=== PATIENT | female | born 1940 | race African-American/Black ===

== ENCOUNTER → 2016-10-21 | Outpatient (CLI) | payer MEDICARE, BC ==
[2016-07-16 10:52] VITALS: BP 134/68
[~2016-10-21] MED LIST: AMLO5TAB2 PO; ATOR20TA58 PO; HYDR-971 PO; HYDR25TA9 PO; LEVO100T PO; LEVO112T4 PO; METO50TA10 PO; METO50TA2 PO; PANT20TA2 PO; VALA500T5 PO
--- NOTE | 2016-10-21 16:41 | RAD ---
APPROVED REPORT Patient Location : OUT-PATIENT Indications Dill scale images of the bilateral great saphenous veins and lesser saphenous veins does not reveal a ny obvious evidence of thrombus. Spectral waveforms reveal normal flow patterns with no evidence of s ignificant reflux. The bilateral lesser saphenous veins do not show any evidence of reflux. The right great saphenous vein measures approximately 6.9 mm with a reflux time of 0.5 seconds. The left great saphenous vein measures 5.7 mm with a reflux time of 0.3 seconds. Critical Notification Critical Value: No <Conclusion> No evidence of reflux in the bilateral lesser and greater saphenous veins.
== END | disposition home or self-care (01) ==
LOC: US 09:46
PROVIDERS: ATTEND Internal Medicine Cardiovascular Disease
DX: K21.9 Gastro-esophageal reflux disease without esophagitis (principal); M79.89 Other specified soft tissue disorders
CPT/HCPCS: 93970

== ENCOUNTER → 2017-03-20 | Outpatient (CLI) | payer MEDICARE, BC ==
[2016-07-16 10:52] VITALS: BP 134/68
[~2017-03-20] MED LIST changes: -METO50TA10 PO; +METO50TA29 PO; -PANT20TA2 PO; +PANT20TA58 PO
--- NOTE | 2017-03-20 10:24 | RAD ---
EXAM: Chest 2 views. HISTORY: Chest pain, chills. COMPARISON: 07/14/2016. FINDINGS: Frontal and lateral views of the chest are obtained. Bilaterally opacities in the left base most likely indicate atelectasis. The hemidiaphragms are mildly flattened. There are atherosclerotic calcifications of the aorta. There is no pneumothorax or pleural effusion. The heart is not enlarged. Changes of thyroidectomy are suspected. IMPRESSION: 1. Correlate for chronic obstructive pulmonary disease. Left basilar atelectasis versus minimal infiltrate.
== END | disposition home or self-care (01) ==
LOC: DXRAD 10:00
PROVIDERS: ATTEND Family Medicine
DX: J98.6 Disorders of diaphragm (principal); I70.0 Atherosclerosis of aorta; R07.89 Other chest pain; R68.83 Chills (without fever)
CPT/HCPCS: 71020

== ENCOUNTER 2017-03-29 11:30 | Emergency (ER) | payer MEDICARE, BC ==
[~2017-03-29] VITALS: Ht 167.6 cm; Wt 72.1 kg
[2017-03-29 11:40] VITALS: BP 179/96
--- NOTE | 2017-03-29 12:17 | PHYS DOC ---
General Chief Complaint: COUGH Stated Complaint: COUGH Time Seen by MD: 11:37 Source: patient Exam Limitations: no limitations Problems: History of Present Illness Initial Comments Patient is a 76-year-old female who comes to the ED complaining of cough and right ear fullness. Patient states that she's had a dry cough with clear nasal discharge and watery eyes for the past few days. Today she's had right ear fullness with muffled hearing no actual pain. No fever or chills or difficulty breathing no headache nausea or vomiting. Patient has history of seasonal allergies and is a former smoker denies asthma history. No chest pain or dyspnea on exertion, further questioning reveals the patient sleeps primarily on the right side of her head. Timing/Duration: changing over time, other Severity: mild Modifying Factors: improves with other Associated Symptoms: cough, other Allergies: Coded Allergies: MARIANA Inhibitors (Verified Allergy, Intermediate, 07/15/16) Penicillins (Verified Allergy, Intermediate, 07/15/16) lansoprazole (Verified Allergy, Intermediate, 07/15/16) moxifloxacin (Verified Allergy, Intermediate, 07/15/16) ceftriaxone (Verified Adverse Reaction, Intermediate, 02/24/16) Past Medical History Medical History: other (GERD, hypertension) Surgical History: appendectomy (thyroidectomy) Social History Smoker: quit greater than 1 year Alcohol: none Drugs: none Review of Systems Constitutional: denies chills, denies diaphoresis, denies fever, denies malaise EENTM: see HPI Respiratory: see HPI, denies shortness of breath Cardiovascular: denies chest pain, denies palpitations, denies syncope Gastrointestinal: denies abdominal pain, denies nausea, denies vomiting Musculoskeletal: denies back pain, denies joint swelling, denies neck pain Psychiatric/Neurological: denies headache, denies numbness, denies paresthesia Physical Exam General Appearance: WD/WN, no apparent distress Eyes: bilateral eye PERRL, bilateral eye EOMI, bilateral eye other ( conjunctivae injected with clear tearing bilaterally) Ear, Nose, Throat: other (serous fluid right TM, turbinates inflamed with clear nasal discharge and postnasal drip) Neck: non-tender, supple Respiratory: chest non-tender, no respiratory distress, other (mildly decreased breath sounds bilaterally with faint wheeze) Cardiovascular: normal peripheral pulses, regular rate, rhythm Back: no CVA tenderness, no vertebral tenderness Extremities: non-tender, normal inspection 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 PHYSICIAN: ULI KENNEDY DO REASON: cough PROCEDURE: PORTABLE CHEST 1V Portable chest, 03/29/2017: History: Cough Comparison is made to a study from 03/20/2017. The heart is at the upper limits of normal in size. There is calcific plaquing of the aorta. The pulmonary vascularity is normal. No pulmonary infiltrate is seen. No definite pleural fluid is seen. IMPRESSION: No acute cardiopulmonary abnormality is detected. DICTATED AND SIGNED BY: BAHMAN LANGFORD MD DATE: 03/29/17 1212 CC: SANDEE CHAVEZ MD; ULI KENNEDY DO ~ Recheck after DuoNeb patient's lungs are clearer with better air movement still with faint wheeze bilaterally. Departure Time of Disposition: 13:25 Disposition: 01 HOME, SELF-CARE Diagnosis: bronchitis, R serous OM, allergic rhinitis Condition: GOOD Patient Instructions: Allergic Rhinitis, Serous Otitis Media Additional Instructions: Continue current medications. Avoid smoke and environmental allergens as you were able. Iwav-[id number] Zyrtec or warning symptoms, Benadryl for nighttime symptoms. Prescriptions: Prednisone, Zithromax, albuterol Follow-up with your doctor in 5-7 days for recheck. Return to the ED with new or changing symptoms. ULI KENNEDY DO Mar 29, 2017 12:17
[2017-03-29] MEDS ORDERED: IPRATRPIUM/ALBUTEROL 0.5/2.5MG 3 ML NEBU. NEB ONE (13:00)
[2017-03-29] MEDS ORDERED: ALBU8.5H8 INH (13:25)
[2017-03-29] MEDS ORDERED: PRED20TA PO (13:25)
[2017-03-29] MEDS ORDERED: AZIT250T PO (13:25)
== END 2017-03-29 13:48 | disposition home or self-care (01) ==
LOC: ER 11:30
DX: J40 Bronchitis, not specified as acute or chronic (principal); H65.91 Unspecified nonsuppurative otitis media, right ear; J30.9 Allergic rhinitis, unspecified; I10 Essential (primary) hypertension; K21.9 Gastro-esophageal reflux disease without esophagitis; Z87.891 Personal history of nicotine dependence; Z88.8 Allergy status to other drugs, medicaments and biological substances; Z88.1 Allergy status to other antibiotic agents; Z88.0 Allergy status to penicillin
CPT/HCPCS: 71010; 94640; 99284; J7620

== ENCOUNTER → 2017-04-16 | Outpatient (CLI) | payer MEDICARE, BC ==
[2017-03-29 11:40] VITALS: BP 179/96
[~2017-04-16] MED LIST changes: +ALBU8.5H8 INH; +AZIT250T PO; +IV RINGERS SOLUTION,LACTATED 1,000 ML IV ONE; +LIDOCAINE 2% PF Vial for OR 5 ML VIAL. ONE; +PRED20TA PO; +PROPOFOL 20 ML IV ONE
== END | disposition home or self-care (01) ==
LOC: SURG 11:54
PROVIDERS: ATTEND Internal Medicine Gastroenterology
DX: K29.70 Gastritis, unspecified, without bleeding (principal); K44.9 Diaphragmatic hernia without obstruction or gangrene; I10 Essential (primary) hypertension; E03.9 Hypothyroidism, unspecified; E11.9 Type 2 diabetes mellitus without complications
CPT/HCPCS: 43239; J2704; J7120; J2001

== ENCOUNTER → 2017-04-28 | Outpatient (CLI) | payer MEDICARE, BC ==
[2017-03-29 11:40] VITALS: BP 179/96
[~2017-04-28] MED LIST changes: +IOHEXOL 240 MG/ML 50ML VIAL. ONE; +IOHEXOL 300 MG/ML 75 ML VIAL. IV ONE; -IV RINGERS SOLUTION,LACTATED 1,000 ML IV ONE; -LIDOCAINE 2% PF Vial for OR 5 ML VIAL. ONE; -PROPOFOL 20 ML IV ONE
[2017-04-28 08:27] LABS: CREATININE 0.8 mg/dL (0.6-1.0); GFR 84.6
--- NOTE | 2017-04-28 10:48 | RAD ---
EXAM: CT abdomen/pelvis with contrast. HISTORY: Weight loss. TECHNIQUE: Computed tomography of the abdomen and pelvis was performed after the intravenous administration of 75 mL Omnipaque 300. COMPARISON: 07/14/2016. FINDINGS: Lung windows through the visualized portions of the bases reveal mild atelectasis. There is a small to moderate hiatal hernia. Bone windows reveal no suspicious lesions. A bone island in the left iliac wing is likely benign. Multiple fluid density lesions scattered throughout the liver most likely represent cysts. The largest in the right lobe measures 4.3 x 3.2 cm. There are no suspicious hepatic lesions. The distal pancreatic duct is at the upper limits of normal caliber. No pancreatic parenchymal lesion is seen. There is a cortical scar posteriorly along the right renal interpolar region. Small renal cysts measure up to 1 cm on the left. The gallbladder, adrenal glands and spleen are unremarkable. There are no pathologically enlarged lymph nodes. The uterus is surgically absent. Sigmoid diverticulosis is mild. There is no obstruction. IMPRESSION: 1. No cause for weight loss is identified. 2. Mfacr-rh-xawzpffy hiatal hernia. *One or more of the following individualized dose reduction techniques were utilized for this examination: 1. Automated exposure control. 2. Adjustment of the mA and/or kV according to patient size. 3. Use of iterative reconstruction technique.
== END | disposition home or self-care (01) ==
LOC: CT 07:46
PROVIDERS: ATTEND Internal Medicine Gastroenterology
DX: K57.30 Diverticulosis of large intestine without perforation or abscess without bleeding (principal); K44.9 Diaphragmatic hernia without obstruction or gangrene; N28.1 Cyst of kidney, acquired; J98.11 Atelectasis; R63.4 Abnormal weight loss; I10 Essential (primary) hypertension; E78.00 Pure hypercholesterolemia, unspecified; F17.200 Nicotine dependence, unspecified, uncomplicated; Z90.710 Acquired absence of both cervix and uterus
CPT/HCPCS: 36415; 74177; 82565; 84520; Q9966; Q9967

== ENCOUNTER 2017-06-19 11:27 | Inpatient (IN) | payer MEDICARE, BC ==
[~2017-06-19] VITALS: Ht 167.6 cm; Wt 74.4 kg
[~2017-06-19 11:27] MED LIST changes: -IOHEXOL 240 MG/ML 50ML VIAL. ONE; -IOHEXOL 300 MG/ML 75 ML VIAL. IV ONE; -METO50TA2 PO; +METO50TA6 PO
[2017-06-19] MEDS ORDERED: ACETAMINOPHEN 325 MG TABLET PO PRN (13:00)
[2017-06-19 13:13] VITALS: BP 185/104
[2017-06-19 14:01] LABS: BASO % 1 % (0-3); EOS # 0.1 x10^3/uL (0.0-0.7); EOS % 1 % (0-3); HEMATOCRIT 39.7 % (36.0-47.0); HEMOGLOBIN 13.6 g/dL (12.0-15.5); LYMPH % 13 % (24-48); MEAN CORPUSCULAR HEMOGLOBIN 32 pg (25-35); MEAN CORPUSCULAR HGB CONC 34 g/dL (31-37); MEAN CORPUSCULAR VOLUME 94 fL (79-100); MONO # 0.3 x10^3/uL (0.0-1.1); MONO % 4 % (0-9); NEUT # 6.4 x10^3uL (1.8-7.7); NEUT % 81 % (31-73); PLATELET COUNT 313 x10^3/uL (140-400); RED BLOOD COUNT 4.22 x10^6/uL (3.50-5.40); RED CELL DISTRIBUTION WIDTH 14.2 % (11.5-14.5); WHITE BLOOD COUNT 7.8 x10^3/uL (4.0-11.0)
[2017-06-19] MEDS ORDERED: PANT40TA5 PO (14:16)
[2017-06-19 14:21] LABS: ALBUMIN 3.8 g/dL (3.4-5.0); ALBUMIN/GLOBULIN RATIO 0.8 (1.0-1.7); CALCIUM 8.9 mg/dL (8.5-10.1); CREATININE 0.8 mg/dL (0.6-1.0); GFR 84.6; POTASSIUM 3.5 mmol/L (3.5-5.1); TOTAL BILIRUBIN 0.3 mg/dL (0.2-1.0); TOTAL PROTEIN 8.5 g/dL (6.4-8.2)
[2017-06-19 15:04] LABS: SEDIMENTATION RATE 65 (0-25)
--- NOTE | 2017-06-19 15:36 | RAD ---
Chest, 2 views, 06/19/2017: History: Pneumonia Comparison is made to a study from 03/29/2017. The heart size and pulmonary vascularity are normal. There is calcific plaquing and tortuosity of the thoracic aorta. There is mild left basilar linear scarring or atelectasis. No pulmonary consolidation is evident. There is no evidence of pleural fluid. IMPRESSION: Mild left basilar linear atelectasis or scarring.
[2017-06-19] MEDS: IV NORMAL SALINE 1,000ML 1,000 ML IV SCH (15:38)
[2017-06-19] MEDS: ENOXAPARIN 40 MG/0.4 ML DISP.SYRIN. SQ SCH (15:39)
[2017-06-19] MEDS: PROMETH/CODEINE 6.25/10MG 5 ML SYRUP. PO PRN (15:44)
[2017-06-19] MEDS: cloNIDine HCL 0.1 MG TABLET PO PRN (16:17)
[2017-06-19] MEDS: IPRATRPIUM/ALBUTEROL 0.5/2.5MG 3 ML NEBU. NEB SCH ×3 (16:55→21:00)
[2017-06-19 17:01] VITALS: BP 175/77
[2017-06-19] MEDS ORDERED: valACYclovir 500 MG TABLET. PO PRN (18:15)
[2017-06-19] MEDS ORDERED: PROMETH/CODEINE 6.25/10MG 5 ML SYRUP. PO PRN (18:15)
[2017-06-19] MEDS ORDERED: ZOLPIDEM 5 MG TABLET. PO PRN (18:15)
[2017-06-19] MEDS ORDERED: VANCOMYCIN 1.75 GM in IV NORMAL SALINE 500ML 500 ML IV ONE (18:30)
[2017-06-19] MEDS ORDERED: IOHEXOL 300 MG/ML 75 ML VIAL. IV ONE ×2 (18:30→19:45)
[2017-06-19] MEDS ORDERED: ALBUTEROL SULFATE 2.5 MG/3 ML NEBU. NEB PRN (18:45)
[2017-06-19] MEDS: methylPREDNISolone SOD SUCC PF 40 MG/ML VIAL. IV SCH (19:19)
[2017-06-19] MEDS: amLODIPine BESYLATE 5 MG TABLET PO SCH (19:20)
[2017-06-19 19:38] VITALS: BP 118/65
[2017-06-19] MEDS ORDERED: ALBUTEROL SULFATE 8GM INHALER. INH SCH (20:00)
[2017-06-19 20:02] VITALS: BP 163/106
[2017-06-19] MEDS: VANCOMYCIN PER PHARMACY MC PRN (20:35)
[2017-06-19] MEDS: LACTOBACILLUS RHAMNOSUS GG 1 CAPSULE. PO SCH (21:10)
[2017-06-19] MEDS: DOXYCYCLINE HYCLATE 100 MG TABLET PO SCH (21:10)
[2017-06-19] MEDS: METOPROLOL SUCC 24HR ER 25 MG TAB.ER.24H. PO SCH (21:11)
[2017-06-19] MEDS ORDERED: cloNIDine HCL 0.1 MG TABLET PO SCH (22:00)
--- NOTE | 2017-06-19 23:09 | RAD ---
CT angiography chest with contrast TECHNIQUE: Helical CT imaging of the chest with multiplanar 3-D MIP reconstructions of the pulmonary arteries to assess for emboli with 65 mL Omnipaque 300 intravenous contrast. HISTORY: Elevated d-dimer. FINDINGS: The pulmonary arteries are markedly under opacified with contrast limiting the ability to detect pulmonary emboli peripheral of the brenda, there is no large central pulmonary artery embolus of the main, right or left pulmonary artery centrally the brenda evident. Heart size normal. Thoracic aorta unremarkable. Small sliding hiatal hernia gastroesophageal junction. No mediastinal or hilar adenopathy within the chest. Left renal parapelvic 2 cm cyst and upper pole 1 cm nonspecific hypodense lesion. Numerous fluid density liver cysts with densities measuring less than 10 units some of the cysts have irregular margins however no enhancing components or internal septations are evident. Mild basilar lower lobe discoid atelectasis. No pneumothorax or pleural effusions. Bones unremarkable. IMPRESSION: 1. Limited contrast density within the pulmonary arteries decreases sensitivity to detect pulmonary emboli as described above. No large central pulmonary artery embolus is evident as described above. 2. Mild basilar lower lobe atelectasis. 3. Numerous fluid density liver cystic lesions. This may be further characterized by abdominal sonography. Exposure: One or more of the following individualized dose reduction techniques were utilized for this examination: 1. Automated exposure control 2. Adjustment of the mA and/or kV according to patient size 3. Use of iterative reconstruction technique Electronically signed by: Ravinder Hsu MD (06/19/2017 11:06 PM) [facility]
[2017-06-19] MEDS: ACETAMINOPHEN 500 MG TABLET PO PRN (23:23)
[2017-06-19 23:41] VITALS: BP 157/79
[2017-06-19 23:45] LABS: BILIRUBIN,URINE NEG (NEG); CLARITY,URINE CLEAR; COLOR,URINE STRAW; GLUCOSE,URINE NEG (NEG); NITRITE,URINE NEG (NEG); UROBILINOGEN,URINE 0.2 mg/dL (0.2 mg/dL); WBC,URINE 0 /HPF (0-4)
[2017-06-19 23:46] LABS: BACTERIA,URINE FEW /HPF (0-FEW); SQUAMOUS EPITHELIAL CELL,UR FEW /LPF
[2017-06-20] MEDS: PROMETH/CODEINE 6.25/10MG 5 ML SYRUP. PO PRN (04:50)
[2017-06-20] MEDS: IV NORMAL SALINE 1,000ML 1,000 ML IV SCH ×2 (05:10→09:00)
[2017-06-20] MEDS: LEVOTHYROXINE 112 MCG TABLET PO SCH (05:13)
[2017-06-20 05:48] LABS: BASO % 0 % (0-3); EOS % 0 % (0-3); HEMATOCRIT 34.6 % (36.0-47.0); LYMPH # 0.7 x10^3/uL (1.0-4.8); LYMPH % 10 % (24-48); MEAN CORPUSCULAR HEMOGLOBIN 32 pg (25-35); MEAN CORPUSCULAR HGB CONC 35 g/dL (31-37); MEAN CORPUSCULAR VOLUME 92 fL (79-100); MONO # 0.5 x10^3/uL (0.0-1.1); MONO % 6 % (0-9); NEUT # 6.5 x10^3uL (1.8-7.7); NEUT % 84 % (31-73); PLATELET COUNT 256 x10^3/uL (140-400); RED BLOOD COUNT 3.74 x10^6/uL (3.50-5.40); RED CELL DISTRIBUTION WIDTH 14.4 % (11.5-14.5); WHITE BLOOD COUNT 7.7 x10^3/uL (4.0-11.0)
[2017-06-20 05:51] VITALS: BP 141/84
[2017-06-20 05:53] LABS: CALCIUM 7.4 mg/dL (8.5-10.1); CREATININE 0.9 mg/dL (0.6-1.0); GFR 73.9; POTASSIUM 3.4 mmol/L (3.5-5.1)
[2017-06-20] MEDS: IPRATRPIUM/ALBUTEROL 0.5/2.5MG 3 ML NEBU. NEB SCH ×5 (06:04→20:50)
[2017-06-20] MEDS: methylPREDNISolone SOD SUCC PF 40 MG/ML VIAL. IV SCH (08:56)
[2017-06-20] MEDS: amLODIPine BESYLATE 5 MG TABLET PO SCH (08:56)
[2017-06-20] MEDS: DOXYCYCLINE HYCLATE 100 MG TABLET PO SCH ×2 (08:57→21:03)
[2017-06-20] MEDS: LACTOBACILLUS RHAMNOSUS GG 1 CAPSULE. PO SCH ×2 (08:57→21:03)
[2017-06-20] MEDS: METOPROLOL SUCC 24HR ER 25 MG TAB.ER.24H. PO SCH ×2 (08:57→21:04)
[2017-06-20] MEDS ORDERED: PNEUMOC CONJ VACC 23-VALENT 0.5 ML VIAL. VAX IM ONE (09:00)
[2017-06-20] MEDS: ACETAMINOPHEN 500 MG TABLET PO PRN ×2 (10:39→18:24)
[2017-06-20 11:19] VITALS: BP 155/81
--- NOTE | 2017-06-20 13:20 | RAD ---
Ultrasound abdomen 06/20/2017 Indication: Cystic liver lesions. Comparison: CT chest 06/19/2017. Technique: Multiple sonographic images of the abdomen were obtained utilizing grayscale and color Doppler. Findings: Visualized portions of pancreas appear normal. Abdominal aorta measures 1.2 cm the mid aorta and is otherwise obscured. IVC is patent. Gallbladder is normal in appearance without evidence for gallstones, gallbladder wall thickening or pericholecystic fluid. Common bile duct measures 5 mm, within normal limits. Multiple anechoic circumscribed lesions with through transmission are identified within the liver measuring 14 x 10 x 12 mm in the left hepatic lobe, 10 x 9 x 12 mm in the anterior liver, and 40 x 25 x 28 mm in the right hepatic dome. Additionally, there is a 29 x 22 x 31 mm cyst with a thin septation in the right hepatic dome. There is an adjacent 13 mm cyst. Along the border of the right kidney, there is a 6 mm cyst. No suspicious hepatic masses are identified. All of the hypodense lesions identified on the CT may not be completely characterized on this examination. The right kidney measures 9.7 x 4.7 x 4.4 cm. The left kidney measures 10.9 x 5.6 x 6.0 cm. There is a 11 x 12 x 14 mm simple cyst in the midpole the left kidney. Otherwise, kidneys are normal in appearance without evidence for hydronephrosis or suspicious renal mass. No renal calculi are identified. There is no free fluid in the abdomen. Spleen is normal in size measuring up to 8.0 cm. Impression: Previously seen hypodense lesions on CT within the hepatic parenchyma are felt to represent benign etiology such as simple cysts. Not all the hypodense lesions may be characterize on this examination. If there is any history of underlying malignancy or elevated liver enzymes, further evaluation with abdominal MRI may be of benefit. Otherwise, findings are most favored to be benign.
[2017-06-20] MEDS: ENOXAPARIN 40 MG/0.4 ML DISP.SYRIN. SQ SCH (13:30)
[2017-06-20] MEDS: POTASSIUM CHLORIDE 30 MEQ in IV 1/2 NORMAL SALINE 1,000 ML IV SCH (13:31)
[2017-06-20 15:24] VITALS: BP 154/79
[2017-06-20 20:13] VITALS: BP 171/89
[2017-06-20] MEDS: VANCOMYCIN 1 GM in IV NORMAL SALINE 250ML 250 ML IV SCH (21:03)
[2017-06-20 23:23] VITALS: BP 151/80
[2017-06-21] MEDS: POTASSIUM CHLORIDE 30 MEQ in IV 1/2 NORMAL SALINE 1,000 ML IV SCH ×2 (02:53→20:31)
[2017-06-21] MEDS: PROMETH/CODEINE 6.25/10MG 5 ML SYRUP. PO PRN ×2 (03:25→20:21)
[2017-06-21] MEDS: LEVOTHYROXINE 112 MCG TABLET PO SCH (05:27)
[2017-06-21] MEDS: IPRATRPIUM/ALBUTEROL 0.5/2.5MG 3 ML NEBU. NEB SCH ×4 (05:29→20:10)
[2017-06-21 05:33] VITALS: BP 165/75
[2017-06-21] MEDS: LACTOBACILLUS RHAMNOSUS GG 1 CAPSULE. PO SCH ×2 (08:15→20:22)
[2017-06-21] MEDS: METOPROLOL SUCC 24HR ER 25 MG TAB.ER.24H. PO SCH ×2 (08:16→20:22)
[2017-06-21] MEDS: amLODIPine BESYLATE 5 MG TABLET PO SCH (08:16)
[2017-06-21] MEDS: methylPREDNISolone SOD SUCC PF 40 MG/ML VIAL. IV SCH (08:16)
[2017-06-21] MEDS: DOXYCYCLINE HYCLATE 100 MG TABLET PO SCH ×2 (10:21→20:22)
[2017-06-21 11:09] VITALS: BP 153/99
[2017-06-21] MEDS: ENOXAPARIN 40 MG/0.4 ML DISP.SYRIN. SQ SCH (12:55)
[2017-06-21] MEDS: ACETAMINOPHEN 500 MG TABLET PO PRN ×2 (12:55→20:22)
[2017-06-21] MEDS: cloNIDine HCL 0.1 MG TABLET PO PRN (12:55)
[2017-06-21 15:03] VITALS: BP 149/79
--- NOTE | 2017-06-21 15:06 | PN ---
DATE: SUBJECTIVE: A 76-year-old female in with pneumonia and exacerbation of COPD. OBJECTIVE: VITAL SIGNS: The patient has been running temperatures upwards of 101.7 with a pulse over 100. Technically septic. Blood pressure 155/80, respiratory 20. GENERAL: Feels better, but still very ill: The patient's white count was basically unremarkable. LUNGS: Show expiratory wheezes. CARDIOVASCULAR: Regular sinus rhythm. NEURO: She is tight and ill-appearing. PLAN: We will continue to monitor the patient accordingly to make further evaluation. IMPRESSION: Pneumonia of unspecified etiology, acute exacerbation of chronic obstructive pulmonary disease. SANDEE CHAVEZ MD DR: MANASA/alexa JOB#: [id number] / [id number]
[2017-06-21] MEDS: DICLOFENAC SODIUM 1% TOPICAL GEL 100GM TUBE. TP SCH ×2 (17:30→20:32)
[2017-06-21 19:29] LABS: VANC TR 4.4 mcg/mL (10.0-20.0)
[2017-06-21 19:37] VITALS: BP 152/85
[2017-06-21] MEDS: VANCOMYCIN 1 GM in IV NORMAL SALINE 250ML 250 ML IV SCH (20:21)
[2017-06-21 23:52] VITALS: BP 167/84
[2017-06-22] MEDS: LEVOTHYROXINE 112 MCG TABLET PO SCH (05:27)
[2017-06-22] MEDS: IPRATRPIUM/ALBUTEROL 0.5/2.5MG 3 ML NEBU. NEB SCH ×4 (05:36→20:05)
[2017-06-22 06:17] LABS: BASO % 0 % (0-3); EOS % 0 % (0-3); HEMATOCRIT 35.3 % (36.0-47.0); HEMOGLOBIN 11.9 g/dL (12.0-15.5); LYMPH # 1.8 x10^3/uL (1.0-4.8); LYMPH % 26 % (24-48); MEAN CORPUSCULAR HEMOGLOBIN 32 pg (25-35); MEAN CORPUSCULAR HGB CONC 34 g/dL (31-37); MEAN CORPUSCULAR VOLUME 94 fL (79-100); MONO # 0.5 x10^3/uL (0.0-1.1); MONO % 8 % (0-9); NEUT # 4.5 x10^3uL (1.8-7.7); NEUT % 66 % (31-73); PLATELET COUNT 287 x10^3/uL (140-400); RED BLOOD COUNT 3.75 x10^6/uL (3.50-5.40); WHITE BLOOD COUNT 6.8 x10^3/uL (4.0-11.0)
[2017-06-22 06:19] LABS: CALCIUM 7.3 mg/dL (8.5-10.1); CREATININE 0.8 mg/dL (0.6-1.0); GFR 84.6; POTASSIUM 4.3 mmol/L (3.5-5.1)
[2017-06-22 06:24] VITALS: BP 138/71
[2017-06-22 06:30] VITALS: BP 161/82
[2017-06-22] MEDS: VANCOMYCIN 1 GM in IV NORMAL SALINE 250ML 250 ML IV SCH ×2 (07:40→19:19)
[2017-06-22] MEDS: VANCOMYCIN PER PHARMACY MC PRN (08:59)
[2017-06-22] MEDS: methylPREDNISolone SOD SUCC PF 40 MG/ML VIAL. IV SCH (09:23)
[2017-06-22] MEDS: LACTOBACILLUS RHAMNOSUS GG 1 CAPSULE. PO SCH ×2 (09:23→20:15)
[2017-06-22] MEDS: amLODIPine BESYLATE 5 MG TABLET PO SCH (09:24)
[2017-06-22] MEDS: METOPROLOL SUCC 24HR ER 25 MG TAB.ER.24H. PO SCH ×2 (09:24→20:15)
[2017-06-22] MEDS: DOXYCYCLINE HYCLATE 100 MG TABLET PO SCH ×2 (09:24→20:15)
[2017-06-22] MEDS: DICLOFENAC SODIUM 1% TOPICAL GEL 100GM TUBE. TP SCH ×3 (10:02→20:15)
[2017-06-22 10:49] VITALS: BP 151/82
[2017-06-22] MEDS: POTASSIUM CHLORIDE 30 MEQ in IV 1/2 NORMAL SALINE 1,000 ML IV SCH (11:33)
[2017-06-22] MEDS: ENOXAPARIN 40 MG/0.4 ML DISP.SYRIN. SQ SCH (13:17)
[2017-06-22] MEDS: PROMETH/CODEINE 6.25/10MG 5 ML SYRUP. PO PRN (14:36)
[2017-06-22 16:14] VITALS: BP 171/92
[2017-06-22 19:54] VITALS: BP 163/88
[2017-06-22 22:31] VITALS: BP 173/88
--- NOTE | 2017-06-23 01:51 | PN ---
DATE: SUBJECTIVE: A 76-year-old female in with acute exacerbation of COPD as well as pneumonia of unspecified etiology. She says she is feeling a little bit better and looks a little bit better. OBJECTIVE: VITAL SIGNS: Blood pressure 150/80, respiratory rate 20, pulse 75 and afebrile. LUNGS: Diminished throughout, poor movement of air. CARDIOVASCULAR: Regular sinus rhythm. ABDOMEN: Soft and nontender. IMPRESSION: Acute exacerbation of chronic obstructive pulmonary disease and pneumonia of unspecified etiology. PLAN: Continue with present drug regimen. SANDEE CHAVEZ MD DR: MANASA/alexa JOB#: [id number] / [id number]
[2017-06-23] MEDS: POTASSIUM CHLORIDE 30 MEQ in IV 1/2 NORMAL SALINE 1,000 ML IV SCH (03:50)
[2017-06-23 05:09] VITALS: BP 152/98
[2017-06-23] MEDS: IPRATRPIUM/ALBUTEROL 0.5/2.5MG 3 ML NEBU. NEB SCH (05:30)
[2017-06-23] MEDS: LEVOTHYROXINE 112 MCG TABLET PO SCH (06:11)
[2017-06-23 07:13] LABS: CALCIUM 7.9 mg/dL (8.5-10.1); CREATININE 0.7 mg/dL (0.6-1.0); GFR 98.7; POTASSIUM 4.2 mmol/L (3.5-5.1)
[2017-06-23 07:18] LABS: VANC TR 13.9 mcg/mL (10.0-20.0)
[2017-06-23 07:30] LABS: BASO % 1 % (0-3); EOS % 0 % (0-3); HEMOGLOBIN 12.6 g/dL (12.0-15.5); LYMPH # 1.6 x10^3/uL (1.0-4.8); LYMPH % 31 % (24-48); MEAN CORPUSCULAR HEMOGLOBIN 32 pg (25-35); MEAN CORPUSCULAR HGB CONC 34 g/dL (31-37); MEAN CORPUSCULAR VOLUME 95 fL (79-100); MONO # 0.5 x10^3/uL (0.0-1.1); MONO % 11 % (0-9); NEUT # 2.9 x10^3uL (1.8-7.7); NEUT % 58 % (31-73); PLATELET COUNT 291 x10^3/uL (140-400); RED BLOOD COUNT 3.92 x10^6/uL (3.50-5.40); RED CELL DISTRIBUTION WIDTH 14.5 % (11.5-14.5)
[2017-06-23] MEDS ORDERED: LEVO500T59 PO (10:03)
[2017-06-23] MEDS ORDERED: LACT1CAP19 PO (10:03)
[2017-06-23] MEDS ORDERED: PROM118S2 PO (10:03)
[2017-06-23] MEDS ORDERED: PRED5TAB PO (10:03)
[2017-06-23] MEDS ORDERED: IPRA3AMP NEB (10:03)
[2017-06-23] MEDS ORDERED: AMLO5TAB2 PO (10:03)
[2017-06-23] MEDS: LACTOBACILLUS RHAMNOSUS GG 1 CAPSULE. PO SCH (10:09)
[2017-06-23] MEDS: amLODIPine BESYLATE 5 MG TABLET PO SCH (10:10)
[2017-06-23 10:11] VITALS: BP 152/98
[2017-06-23] MEDS: DOXYCYCLINE HYCLATE 100 MG TABLET PO SCH (10:11)
[2017-06-23] MEDS: METOPROLOL SUCC 24HR ER 25 MG TAB.ER.24H. PO SCH (10:11)
[2017-06-23] MEDS: DICLOFENAC SODIUM 1% TOPICAL GEL 100GM TUBE. TP SCH (10:14)
[2017-06-23] MEDS: methylPREDNISolone SOD SUCC PF 40 MG/ML VIAL. IV SCH (10:14)
[2017-06-23] MEDS ORDERED: VANCOMYCIN 1.25 GM in IV NORMAL SALINE 250ML 250 ML IV SCH (19:30)
[2017-06-23] MEDS ORDERED: VANCOMYCIN 1.5 GM in IV NORMAL SALINE 500ML 500 ML IV SCH (19:30)
== END 2017-06-23 11:14 | disposition home health service (06) | DRG 190 ==
LOC: 1 SOUTH 12:30
PROVIDERS: ADMIT Family Medicine; ATTEND Family Medicine
DX: J44.1 Chronic obstructive pulmonary disease with (acute) exacerbation (principal); J18.9 Pneumonia, unspecified organism; J44.0 Chronic obstructive pulmonary disease with (acute) lower respiratory infection; I16.0 Hypertensive urgency; K21.9 Gastro-esophageal reflux disease without esophagitis; I10 Essential (primary) hypertension; E03.9 Hypothyroidism, unspecified; Z82.49 Family history of ischemic heart disease and other diseases of the circulatory system; Z83.3 Family history of diabetes mellitus; Z84.1 Family history of disorders of kidney and ureter; Z88.1 Allergy status to other antibiotic agents; Z88.0 Allergy status to penicillin; Z88.8 Allergy status to other drugs, medicaments and biological substances
CPT/HCPCS: 36415; 71020; 71275; 76700; 80048; 80053; 80202; 81001; 82550; 83605; 84443; 84484; 85025; 85379; 85651; 87040; 94640; J1650; J2920; J3370; J7030; J7040; J7050; J7620; Q9967

== ENCOUNTER → 2017-07-08 | Outpatient (CLI) | payer MEDICARE, BC ==
[2017-06-23 10:11] VITALS: BP 152/98
[~2017-07-08] MED LIST changes: +IPRA3AMP NEB; +LACT1CAP19 PO; +LEVO500T59 PO; +PANT40TA5 PO; +PRED5TAB PO; +PROM118S2 PO
--- NOTE | 2017-07-08 11:57 | RAD ---
Nonvascular right upper extremity ultrasound 07/08/2017 Clinical indication: Right upper extremity soft tissue mass, nonpainful. Comparison: None. Findings: In the area of palpable interest at the right upper extremity just superior to the elbow joint, there is a focal circumscribed nonvascular oval mass in the subcutaneous tissues with similar sonographic characteristics to the adjacent subcutaneous fat measuring 1.3 x 0.7 x 0.3 cm. 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
== END | disposition home or self-care (01) ==
LOC: US 07:47
PROVIDERS: ATTEND Family Medicine
DX: D17.21 Benign lipomatous neoplasm of skin and subcutaneous tissue of right arm (principal); Z87.891 Personal history of nicotine dependence
CPT/HCPCS: 76881

== ENCOUNTER → 2017-08-20 | Outpatient (CLI) | payer MEDICARE, BC ==
--- NOTE | 2017-08-20 10:58 | RAD ---
Radionuclide gastric emptying study, 08/20/2017: History: Nausea and bloating This study was performed utilizing a solid test meal radiolabeled with 2.0 mCi of technetium 99m sulfur colloid. The time to half emptying of the test meal from the patient's stomach was estimated at 148 minutes. A normal T1/2 is 60 minutes +/- 30 minutes. IMPRESSION: Mildly delayed gastric emptying.
== END | disposition home or self-care (01) ==
LOC: NM 07:52
PROVIDERS: ATTEND Internal Medicine Gastroenterology
DX: K30 Functional dyspepsia (principal)
CPT/HCPCS: 78264; A9541

== ENCOUNTER → 2017-08-20 | Outpatient (CLI) | payer MEDICARE, BC ==
--- NOTE | 2017-08-20 13:42 | RAD ---
DATE: 08/20/2017 EXAM: MAMMO ALLIE SCREENING BILATERAL HISTORY: Screening Mammogram COMPARISON: Screening mammogram 08/20/2016 08/20/2015 and 08/16/2014 This study was interpreted with the benefit of Computerized Aided Detection (CAD). The breast parenchyma shows scattered fibroglandular densities. Breast parenchyma level B. FINDINGS: Bilateral digital 2-D and 3-D tomosynthesis CC and MLO views. Stable left upper outer intramammary lymph nodes. No suspicious mass, calcification or architectural distortion. No significant change from prior examination IMPRESSION: No mammographic evidence of malignancy. Recommend routine screening mammogram in 12 months. BI-RADS CATEGORY: 2 BENIGN FINDING(S) RECOMMENDED FOLLOW-UP: 12M 12 MONTH FOLLOW-UP PQRS compliance statement: Patient information was entered into a reminder system with a target due date for the next mammogram. Mammography is a sensitive method for finding small breast cancers, but it does not detect them all and is not a substitute for careful clinical examination. A negative mammogram does not negate a clinically suspicious finding and should not result in delay in biopsying a clinically suspicious abnormality. "Our facility is accredited by the [employer] Mammography Program."
== END | disposition home or self-care (01) ==
LOC: MAMMO 09:56
PROVIDERS: ATTEND Family Medicine
DX: Z12.31 Encounter for screening mammogram for malignant neoplasm of breast (principal)
CPT/HCPCS: 77063; 77067

== ENCOUNTER → 2017-12-01 | Outpatient (CLI) | payer MEDICARE, BC ==
[~2017-12-01] MED LIST changes: +CALC-157 PO; +CYAN10005 PO
--- NOTE | 2017-12-01 14:27 | RAD ---
EXAM: Head CT without contrast. HISTORY: Involuntary movement. Unsteady gait. TECHNIQUE: Computed tomographic images of the head were obtained without contrast. *One or more of the following individualized dose reduction techniques were utilized for this examination: 1. Automated exposure control. 2. Adjustment of the mA and/or kV according to patient size. 3. Use of iterative reconstruction technique. COMPARISON: None. FINDINGS: There is no acute or subacute extra-axial or intraparenchymal hemorrhage. There is no mass effect or midline shift. There is no hydrocephalus. There are areas of decreased attenuation within the cerebral white matter, nonspecific and likely related to chronic small vessel disease. There is cerebral volume loss. The visualized portions of the orbits, paranasal sinuses and mastoid air cells are unremarkable. No suspicious calvarial lesion is seen. There is slight increased extra-axial space within the anterior left frontal distribution, possibly due to a small arachnoid cyst of no clinical significance. IMPRESSION: 1. Decreased attenuation within the cerebral white matter, a nonspecific finding likely due to chronic small vessel disease. 2. Cerebral volume loss. Electronically signed by: Melanie Simental MD (12/01/2017 2:24 PM) [facility]
== END | disposition home or self-care (01) ==
LOC: CT 12:50
PROVIDERS: ATTEND Family Medicine
DX: R25.8 Other abnormal involuntary movements (principal); I10 Essential (primary) hypertension; E11.9 Type 2 diabetes mellitus without complications; E78.00 Pure hypercholesterolemia, unspecified
CPT/HCPCS: 70450

== ENCOUNTER → 2017-12-17 | Day surgery (SDC) | payer MEDICARE, BC ==
[~2017-12-17] MED LIST changes: +IV RINGERS SOLUTION,LACTATED 1,000 ML IV SCH; +LIDOCAINE 1% PF 2 ML VIAL. ID PRN; +PROPOFOL 10,000 MCG/ML (20ML) VIAL IV ONE; +PROPOFOL 20 ML IV ONE
[2017-12-17 10:02] VITALS: BP 169/105
== END ==
LOC: SURG 08:29
PROVIDERS: ATTEND Internal Medicine Gastroenterology
DX: Z12.11 Encounter for screening for malignant neoplasm of colon (principal); K57.30 Diverticulosis of large intestine without perforation or abscess without bleeding; K64.8 Other hemorrhoids; Z86.010 Personal history of colon polyps
CPT/HCPCS: G0105; J2704; J7120

== ENCOUNTER 2018-05-25 09:40 | Emergency (ER) | payer MEDICARE, BC ==
[~2018-05-25] VITALS: Ht 167.6 cm; Wt 72.6 kg
[~2018-05-25 09:40] MED LIST changes: -AMLO5TAB2 PO; +AMLO5TAB7 PO; +HYDR-2145 PO; +HYDR-3165 PO; -HYDR-971 PO; -HYDR25TA9 PO; -IPRA3AMP NEB; +IPRA3AMP29 NEB; -IV RINGERS SOLUTION,LACTATED 1,000 ML IV SCH; -LIDOCAINE 1% PF 2 ML VIAL. ID PRN; -PROM118S2 PO; +PROM118S5 PO; -PROPOFOL 10,000 MCG/ML (20ML) VIAL IV ONE; -PROPOFOL 20 ML IV ONE
[2018-05-25] MEDS ORDERED: KETOROLAC 60 MG/2 ML VIAL. IM ONE (10:15)
--- NOTE | 2018-05-25 10:17 | PHYS DOC ---
Past History Past Medical History: GERD, Hypertension Past Surgical History: Other Smoking: Non-smoker Alcohol Use: None Drug Use: None Adult General Chief Complaint Chief Complaint: UPPER EXTREMITY PAIN [facility] HPI Patient is a 77 year old right-handed female who presents with complaining of right upper extremity pain for 1 month as an aching pain that getting worse with movement of the arm especially with abduction. Patient states she feels the pain radiating from her neck to her shoulder and elbow and fingers patient states she took [id number]-wcuvbda ibuprofen and appointment without improvement of her condition. Patient states she was not able to sleep on her right side because of pain for several days and last tetanus was not able to sleep because of increasing pain. Patient denies focal neuro deficit and paresthesia, fever and chills, chest pain and shortness of breath, injury to arm. Patient went to her primary care physician today and because of busy office decided to come to ER. Review of Systems Review of Systems Constitutional: Denies fever or chills [] Eyes: Denies change in visual acuity, redness, or eye pain [] HENT: Denies nasal congestion or sore throat [] Respiratory: Denies cough or shortness of breath [] Cardiovascular: No additional information not addressed in HPI [] GI: Denies abdominal pain, nausea, vomiting, bloody stools or diarrhea [] : Denies dysuria or hematuria [] Musculoskeletal: Denies back pain or joint pain [] Integument: Denies rash or skin lesions [] Neurologic: Denies headache, focal weakness or sensory changes [] Endocrine: Denies polyuria or polydipsia [] All other systems were reviewed and found to be within normal limits, except as documented in this note. Allergies Allergies Allergies Coded Allergies Type Severity Reaction Last Updated Verified MARIANA Inhibitors Allergy Intermediate 12/17/17 Yes Penicillins Allergy Intermediate 12/17/17 Yes lansoprazole Allergy Intermediate 12/17/17 Yes moxifloxacin Allergy Intermediate 12/17/17 Yes promethazine Allergy Unknown 12/17/17 Yes tetracycline Allergy Unknown 12/17/17 Yes valsartan Allergy Unknown 12/17/17 Yes ceftriaxone Adverse Reaction Intermediate 12/17/17 Yes Physical Exam Physical Exam Constitutional: Well developed, well nourished, no acute distress, non-toxic appearance. [] HENT: Normocephalic, atraumatic, bilateral external ears normal, oropharynx moist, no oral exudates, nose normal. [] Eyes: PERRLA, EOMI, conjunctiva normal, no discharge. [] Neck: Normal range of motion, no tenderness, supple, no stridor. [] Cardiovascular:Heart rate regular rhythm, no murmur [] Lungs & Thorax: Bilateral breath sounds clear to auscultation [] Abdomen: Bowel sounds normal, soft, no tenderness, no masses, no pulsatile masses. [] Skin: Warm, dry, no erythema, no rash. [] Back: No tenderness, no CVA tenderness. [] Extremities: No tenderness, no cyanosis, no clubbing, ROM intact, no edema. [] Neurologic: Alert and oriented X 3, normal motor function, normal sensory function, no focal deficits noted. [] Psychologic: Affect normal, judgement normal, mood normal. [] Current Patient Data Vital Signs Vital Signs Date Time Temp Pulse Resp B/P (MAP) Pulse Ox O2 Delivery O2 Flow Rate FiO2 05/25/18 09:56 98.1 72 18 99 Room Air EKG EKG [] Radiology/Procedures Radiology/Procedures [] Course & Med Decision Making Course & Med Decision Making Pertinent Imaging studies reviewed. (See chart for details) Evaluation of patient in ER showed 77-year-old right-handed female patient with complaining of chronic right shoulder pain that gradually getting worse. Patient had limited range of abduction. X-ray of cervical spine and shoulder short degenerative joint disease. Plan discharge patient home with diagnose of cervical radiculopathy and rotator cuff disease. Patient instructed to follow up with her primary care physician for further evaluation as needed. Dragon Disclaimer Dragon Disclaimer This electronic medical record was generated, in whole or in part, using a voice recognition dictation system. Departure Departure: Impression: Primary Impression: Cervical radiculopathy due to degenerative joint disease of spine Additional Impression: Rotator cuff arthropathy of right shoulder Disposition: 01 HOME, SELF-CARE (at 1055) Condition: IMPROVED Referrals: DEO KENNEDY DO (PCP) Patient Instructions: Cervical Radiculopathy, Rotator Cuff Injury Additional Instructions: Apply ice on the affected area Follow-up with your primary care physician in 3-5 days Return to ER if not getting better Scripts Cyclobenzaprine Hcl (CYCLOBENZAPRINE HCL) 5 Mg Tablet 1 TAB PO TID for muscle pain, #30 TAB Prov: KOUSHA,SHARAD MD 05/25/18 Tramadol Hcl (ULTRAM) 50 Mg Tablet 50 MG PO PRN Q6HRS PRN for PAIN, #20 TAB Prov: SHARAD ALVARENGA MD 05/25/18 Methylprednisolone (MEDROL) 4 Mg Tab.ds.pk 1 PKG PO UD for inflammation, #1 PKG Prov: SHARAD ALVARENGA MD 05/25/18 Problem Qualifiers SHARAD ALVARENGA MD May 25, 2018 10:17
--- NOTE | 2018-05-25 10:42 | RAD ---
Right shoulder, 3 views, 05/25/2018: HISTORY: Neck and shoulder pain No fracture or dislocation is identified. No significant arthritic change is seen. IMPRESSION: No acute right shoulder abnormality is detected. Cervical spine, 3 views, 05/25/2018: There is moderate disc space narrowing at C5-6 and to lesser degree at C4-5 with moderate marginal spurring. There are mild to moderate degenerative changes involving scattered facet joints bilaterally. No fracture or subluxation is evident. No prevertebral soft tissue swelling is seen. Surgical clips are present in the thyroid region bilaterally. IMPRESSION: 1. Moderate multilevel degenerative change. 2. No acute bony abnormality is detected. Electronically signed by: Valentin Lezama MD (05/25/2018 10:38 AM) [facility]
[2018-05-25] MEDS ORDERED: CYCL5TAB PO (10:59)
[2018-05-25] MEDS ORDERED: TRAM-48 PO (10:59)
[2018-05-25] MEDS ORDERED: METH4TAB2 PO (10:59)
[2018-05-25 11:09] VITALS: BP 158/98
== END 2018-05-25 11:06 | disposition home or self-care (01) ==
LOC: ER 09:40
DX: M54.12 Radiculopathy, cervical region (principal); M47.892 Other spondylosis, cervical region; M12.811 Other specific arthropathies, not elsewhere classified, right shoulder; K21.9 Gastro-esophageal reflux disease without esophagitis; I10 Essential (primary) hypertension; Z88.8 Allergy status to other drugs, medicaments and biological substances; Z88.0 Allergy status to penicillin; Z88.1 Allergy status to other antibiotic agents; Z88.4 Allergy status to anesthetic agent
CPT/HCPCS: 72040; 73030; 96372; 99283; J1885

== ENCOUNTER → 2018-08-23 | Outpatient (CLI) | payer MEDICARE, BC ==
[~2018-08-23] MED LIST changes: +ALBU2.5V8 INH; -ALBU8.5H8 INH; +AMLO5TAB10 PO; -AMLO5TAB7 PO; +CYCL5TAB PO; +METH4TAB2 PO; +TRAM-48 PO
--- NOTE | 2018-08-25 08:15 | RAD ---
DATE: 08/23/2018 11:00 AM EXAM: MAMMO ALLIE SCREENING BILATERAL HISTORY: routine screening evaluation. COMPARISON: Prior mammographic imaging dating back to 08/20/2015 Bilateral CC and MLO views of the breasts were performed. Bilateral breast tomosynthesis was performed in CC and MLO projections. This study was interpreted with the benefit of Computerized Aided Detection (CAD ). Breast Density: The breast parenchyma shows scattered fibroglandular densities. Breast parenchyma level B. FINDINGS: Benign calcifications are present. The parenchymal pattern appears stable. No suspicious masses, microcalcifications or architectural distortion is present to suggest malignancy in either breast. The visualized axillae are unremarkable. IMPRESSION: No mammographic evidence of malignancy. BI-RADS CATEGORY: 2 BENIGN FINDING(S) RECOMMENDED FOLLOW-UP: 12M 12 MONTH FOLLOW-UP Annual screening mammography is recommended, unless clinically indicated sooner based on symptoms or change in physical exam. PQRS compliance statement: Patient information was entered into a reminder system with a target due date 08/25/2019 for the next mammogram. Mammography is a sensitive method for finding small breast cancers, but it does not detect them all and is not a substitute for careful clinical examination. A negative mammogram does not negate a clinically suspicious finding and should not result in delay in biopsying a clinically suspicious abnormality. "Our facility is accredited by the [employer] Mammography Program." [facility]
== END | disposition home or self-care (01) ==
LOC: MAMMO 09:24
PROVIDERS: ATTEND Family Medicine
DX: Z12.31 Encounter for screening mammogram for malignant neoplasm of breast (principal)
CPT/HCPCS: 77063; 77067

== ENCOUNTER → 2018-11-23 | Outpatient (CLI) | payer MEDICARE, BC ==
--- NOTE | 2018-11-23 14:36 | CARD ---
MR#: [id number] Date of Study: 11/23/2018 Ordering Physician: CECELIA RUIZ, Referring Physician: CECELIA RUIZ, Tech: Kay Lugo APPROVED REPORT EXAM: Two-dimensional and M-mode echocardiogram with Doppler and color Doppler. Other Information Quality : GoodHR: 67bpm Rhythm : NSR INDICATION COPD Hypertension/HCVD RISK FACTORS Hyperlipidemia Previous smoker 2D DIMENSIONS RVDd2.4 (2.9-3.5cm)Left Atrium(2D)3.1 (1.6-4.0cm) IVSd1.3 (0.7-1.1cm)Aortic Root(2D)3.3 (2.0-3.7cm) LVDd4.1 (3.9-5.9cm)LVOT Diameter2.1 (1.8-2.4cm) PWd1.2 (0.7-1.1cm)LVDs2.2 (2.5-4.0cm) FS (%) 46.0 %SV58.2 ml LVEF(%)77.8 (>50%) Aortic Valve AoV Peak Kyle.130.5cm/sAoV VTI28.8cm AO Peak GR.6.8mmHgLVOT Peak Kyle.123.9cm/s LVOT VTI 29.46cmAO Mean GR.4mmHg BELLA (VMAX)3.18vg0XQQ (VTI)3.66cm2 Mitral Valve MV E Nnfxzutk29.3cm/sMV DECEL EGSW395bv MV A Ewzxwdcs699.0cm/sE/A Ratio0.8 Pulmonary Valve PV Peak Zpvnekbw82.7cm/sPV Peak Grad.3mmHg Tricuspid Valve TR P. Ezcttszd500xh/sRAP RWUQVKGO0txGw TR Peak Gr.94tbMeUWML39jpQp Pulmonary Vein S1 Requizqx16.1cm/sD2 Pfhaaiso29.7cm/s LEFT VENTRICLE The left ventricle is normal size. There is mild to moderate concentric left ventricular hypertrophy. The left ventricular systolic function is normal and the ejection fraction is within normal range. T he Ejection Fraction is >55%. There is normal LV segmental wall motion. Transmitral Doppler flow starr lizzeth is Grade I-abnormal relaxation pattern. RIGHT VENTRICLE The right ventricle is normal size. There is normal right ventricular wall thickness. The right ventr icular systolic function is normal. ATRIA The left atrium size is normal. The right atrium size is normal. The interatrial septum is intact wit h no evidence for an atrial septal defect or patent foramen ovale as noted on 2-D or Doppler imaging. AORTIC VALVE The aortic valve is normal in structure and function. Doppler and Color Flow revealed no significant aortic regurgitation. There is no significant aortic valvular stenosis. MITRAL VALVE The mitral valve is thickened but opens well. There is no evidence of mitral valve prolapse. There is no mitral valve stenosis. Doppler and Color-flow revealed mild mitral regurgitation. TRICUSPID VALVE The tricuspid valve is normal in structure and function. Doppler and Color Flow revealed trace to mil d tricuspid regurgitation with an estimated PAP of 40 mmHg. There is mild-moderate pulmonary hyperten naif. There is no tricuspid valve stenosis. PULMONIC VALVE The pulmonic valve is not well visualized. Doppler and Color Flow revealed mild pulmonic valvular reg urgitation. There is no pulmonic valvular stenosis. GREAT VESSELS The aortic root is normal in size. The IVC is normal in size and collapses >50% with inspiration. PERICARDIAL EFFUSION There is no evidence of significant pericardial effusion. Critical Notification Critical Value: No <Conclusion> The left ventricular systolic function is normal and the ejection fraction is within normal range. Th e Ejection Fraction is >55%. There is normal LV segmental wall motion. Doppler and Color-flow revealed mild mitral regurgitation. Signed by : Carlos Lipscomb, Electronically Approved : 11/23/2018 14:35:59
== END | disposition home or self-care (01) ==
LOC: ECHO 12:59
PROVIDERS: ATTEND Internal Medicine Cardiovascular Disease
DX: I08.8 Other rheumatic multiple valve diseases (principal); I11.9 Hypertensive heart disease without heart failure; J44.9 Chronic obstructive pulmonary disease, unspecified; E78.5 Hyperlipidemia, unspecified; R00.8 Other abnormalities of heart beat; Z87.891 Personal history of nicotine dependence
CPT/HCPCS: 93306

== ENCOUNTER 2019-06-22 11:11 | Emergency (ER) | payer MEDICARE, BC ==
[~2019-06-22] VITALS: Ht 167.6 cm; Wt 72.6 kg
[~2019-06-22 11:11] MED LIST changes: +CYAN-25 PO; -CYAN10005 PO
[2019-06-22 11:45] VITALS: BP 201/110
[2019-06-22] MEDS ORDERED: cloNIDine HCL 0.1 MG TABLET PO ONE (11:45)
--- NOTE | 2019-06-22 12:02 | PHYS DOC ---
Past History Past Medical History: Hypertension, Hypothyroid Past Surgical History: Hysterectomy Smoking: Non-smoker Alcohol Use: None Drug Use: None Adult General Chief Complaint Chief Complaint: HYPERTENSION HPI HPI Patient is a 78-year-old female who presents from [facility] [address] with report of elevated blood pressure. Patient was being seen at [facility] [address] for upper respiratory infection and they had tested her for influenza which was reportedly negative. Patient was sent here for management of her blood pressure. She denies any headache, vision changes, chest pain or shortness of breath. She does report to some sinus pressure and drainage as well as productive cough.[] Review of Systems Review of Systems Constitutional: Denies fever or chills [] Eyes: Denies change in visual acuity, redness, or eye pain [] HENT: Positive nasal congestion with purulent nasal drainage[] Respiratory: Positive cough without shortness of breath [] Cardiovascular: No additional information not addressed in HPI [] Integument: Denies rash or skin lesions [] Neurologic: Denies headache, focal weakness or sensory changes [] Current Medications Current Medications Current Medications Medications (Trade) Dose Ordered Sig/Cuco Start Time Stop Time Status Last Admin Dose Admin Clonidine HCl (Catapres) 0.2 mg 1X ONCE 06/22/19 11:45 06/22/19 11:52 DC Allergies Allergies Allergies Coded Allergies Type Severity Reaction Last Updated Verified MARIANA Inhibitors Allergy Intermediate 12/17/17 Yes Penicillins Allergy Intermediate 12/17/17 Yes lansoprazole Allergy Intermediate 12/17/17 Yes moxifloxacin Allergy Intermediate 12/17/17 Yes promethazine Allergy Unknown 12/17/17 Yes tetracycline Allergy Unknown 12/17/17 Yes valsartan Allergy Unknown 12/17/17 Yes ceftriaxone Adverse Reaction Intermediate 12/17/17 Yes Physical Exam Physical Exam Constitutional: Well developed, well nourished, no acute distress, non-toxic appearance. [] HENT: Normocephalic, atraumatic, right frontal and maxillary sinuses are tender to palpation and percussion, no oral exudates, nose normal. [] Cardiovascular: Regular rate and rhythm[] Lungs & Thorax: Fine rhonchi are noted in the left lung base to auscultation [] Skin: Warm, dry, no erythema, no rash. [] Neurologic: Alert and oriented X 3, no focal deficits noted. [] Current Patient Data Vital Signs Vital Signs Date Time Temp Pulse Resp B/P (MAP) Pulse Ox O2 Delivery O2 Flow Rate FiO2 06/22/19 11:35 98.1 72 16 97 Room Air EKG EKG [] Radiology/Procedures Radiology/Procedures [] Impressions: Two-view chest x-ray demonstrates no acute abnormality Course & Med Decision Making Course & Med Decision Making Pertinent Labs and Imaging studies reviewed. (See chart for details) [] Dragon Disclaimer Dragon Disclaimer This electronic medical record was generated, in whole or in part, using a voice recognition dictation system. Departure Departure: Impression: Primary Impression: Acute sinusitis Disposition: HOME, SELF-CARE Condition: STABLE Referrals: PCP,UNKNOWN (PCP) Patient Instructions: Sinusitis Scripts Guaifenesin/Codeine Phosphate (Codeine-Guaifen 10-100 mg/5 ml) 120 Ml Liquid 5 ML PO PRN Q6HRS PRN for cough and congestion MDD 20 Milliliter(s) for 6 Days, #120 ML 0 Refills Prov: MARYCRUZ SCHULTZ Jr. DO 06/22/19 Sulfamethoxazole/Trimethoprim (BACTRIM DS TABLET) 1 Each Tablet 1 TAB PO BID for infection for 14 Days, #28 TAB 0 Refills Prov: MARYCRUZ SCHULTZ Jr. DO 06/22/19 Problem Qualifiers Primary Impression: Acute sinusitis Sinusitis location: unspecified location Recurrence: non-recurrent Qualified Codes: J01.90 - Acute sinusitis, unspecified MARYCRUZ SCHULTZ Jr. DO Jun 22, 2019 12:02
[2019-06-22] MEDS ORDERED: GUAI120L35 PO (12:42)
[2019-06-22] MEDS ORDERED: SULF1TAB24 PO (12:42)
--- NOTE | 2019-06-22 12:42 | RAD ---
Chest radiograph 06/22/2019 11:36 AM INDICATION: Cough COMPARISON: 06/19/2017 TECHNIQUE: Frontal and lateral views of the chest are provided. FINDINGS: The cardiomediastinal silhouette is within normal limits. There are no pleural effusions. There is no pulmonary vascular congestion. There is no pneumothorax. The lungs are clear. Surgical clips are identified at the neck base, possibly from prior thyroidectomy. No significant osseous abnormality is identified. IMPRESSION: No acute cardiopulmonary process. Electronically signed by: Zahraa Oglesby MD (06/22/2019 12:40 PM) [facility]
== END 2019-06-22 12:50 | disposition home or self-care (01) ==
LOC: ER 11:11
DX: J01.90 Acute sinusitis, unspecified (principal); I10 Essential (primary) hypertension; E03.9 Hypothyroidism, unspecified; Z88.0 Allergy status to penicillin; Z88.8 Allergy status to other drugs, medicaments and biological substances; Z88.1 Allergy status to other antibiotic agents
CPT/HCPCS: 71046; 99284

== ENCOUNTER → 2019-08-26 | Outpatient (CLI) | payer MEDICARE, BC ==
[~2019-08-26] MED LIST changes: +GUAI120L35 PO; +SULF1TAB24 PO
--- NOTE | 2019-08-29 18:11 | RAD ---
BILATERAL SCREENING MAMMOGRAM, 3-D History: Routine screening. Comparison: 08/23/2018, 08/20/2017, 08/20/2016, 08/20/2015, 08/15/2014. Technique: MLO and CC digital tomosynthesis (3D) images obtained. Radiologist reviewed these images on dedicated workstation. Findings: Breast Tissue Density B : There are scattered areas of fibroglandular density. There are no dominant masses, suspicious microcalcifications, or architectural distortion. Benign-appearing lymph nodes are stable. IMPRESSION: No mammographic evidence of malignancy. Recommend routine screening. BI-RADS category 1: Negative. The images were reviewed with computer-aided detection. Patient information is entered into reminder system with a target due date for the next screening mammogram. Mammography is the most sensitive method for finding small breast cancers, but it does not detect them all and is not a substitute for careful clinical examination. A negative mammogram does not negate a clinically suspicious finding and should not result in delay in biopsying a clinically suspicious abnormality. "Our facility is accredited by the [employer] Mammography Program." Electronically signed by: Brad Mckenna MD (08/29/2019 6:08 PM) [facility]
== END ==
LOC: MAMMO 09:05
PROVIDERS: ATTEND Nurse Practitioner Adult Health
DX: Z12.31 Encounter for screening mammogram for malignant neoplasm of breast (principal)
CPT/HCPCS: 77063; 77067

== ENCOUNTER 2020-01-12 11:34 | Emergency (ER) | payer MEDICARE, BC ==
[~2020-01-12] VITALS: Ht 167.6 cm; Wt 72.6 kg
[~2020-01-12 11:34] MED LIST changes: -PANT40TA5 PO; +PANT40TA6 PO
--- NOTE | 2020-01-12 12:37 | PHYS DOC ---
Past History Past Medical History: Hypertension, Hypothyroid Past Surgical History: Hysterectomy Smoking: Non-smoker Alcohol Use: None Drug Use: None General Adult EDM: Chief Complaint: HYPERTENSION HPI: HPI: 79-year-old female presents with elevated blood pressure. Patient went to her primary care physician today and her blood pressure was high. They gave her 5 mg of amlodipine about 2 hours ago. They took some blood work but will not get results today. She continues to have elevated blood pressure 182/90 in the emergency room. She states that she feels normal. No new or usual symptoms. She denies fever chills. Review of Systems: Review of Systems: Constitutional: Denies fever or chills Eyes: Denies change in visual acuity HENT: Denies nasal congestion or sore throat Respiratory: Denies cough or shortness of breath Cardiovascular: Hypertension. Denies chest pain or edema GI: Denies abdominal pain, nausea, vomiting, bloody stools or diarrhea : Denies dysuria Musculoskeletal: Denies back pain or joint pain Integument: Denies rash Neurologic: Denies headache, focal weakness or sensory changes Endocrine: Denies polyuria or polydipsia Lymphatic: Denies swollen glands Psychiatric: Denies depression or anxiety Heart Score: Risk Factors: Risk Factors: DM, Current or recent (<one month) smoker, HTN, HLP, family histo ry of CAD, obesity. Risk Scores: Score 0 - 3: 2.5% MACE over next 6 weeks - Discharge Home Score 4 - 6: 20.3% MACE over next 6 weeks - Admit for Clinical Observation Score 7 - 10: 72.7% MACE over next 6 weeks - Early Invasive Strategies Allergies: Allergies: Allergies Coded Allergies Type Severity Reaction Last Updated Verified MARIANA Inhibitors Allergy Intermediate 12/17/17 Yes Penicillins Allergy Intermediate 12/17/17 Yes lansoprazole Allergy Intermediate 12/17/17 Yes moxifloxacin Allergy Intermediate 12/17/17 Yes promethazine Allergy Unknown 12/17/17 Yes tetracycline Allergy Unknown 12/17/17 Yes valsartan Allergy Unknown 12/17/17 Yes ceftriaxone Adverse Reaction Intermediate 12/17/17 Yes Physical Exam: PE: Constitutional: Well developed, well nourished, no acute distress, non-toxic appearance. [] HENT: Normocephalic, atraumatic, bilateral external ears normal, oropharynx moist, no oral exudates, nose normal. [] Eyes: PERRLA, EOMI, conjunctiva normal, no discharge. [] Neck: Normal range of motion, no tenderness, supple, no stridor. [] Cardiovascular: Heart rate regular rhythm, no murmur [] Lungs & Thorax: Bilateral breath sounds clear to auscultation [] Abdomen: Bowel sounds normal, soft, no tenderness, no masses, no pulsatile masses. [] Skin: Warm, dry, no erythema, no rash. [] Back: No tenderness, no CVA tenderness. [] Extremities: No tenderness, no cyanosis, no clubbing, ROM intact, no edema. [] Neurologic: Alert and oriented X 3, normal motor function, normal sensory function, no focal deficits noted. [] Psychologic: Affect normal, judgement normal, mood normal. [] EKG: EKG: [] Radiology/Procedures: Radiology/Procedures: [] Course & Med Decision Making: Course & Med Decision Making Pertinent Labs and Imaging studies reviewed. (See chart for details) The patient's labs are unremarkable. Her doctor has added amlodipine to her previous medications to take going forward. Her blood pressures improved to 161/96. This is acceptable for discharge. I believe that this should continue to improve with her new medication regimen. She is stable for discharge at this time. [] Moustapha Disclaimer: Moustapha Disclaimer: This electronic medical record was generated, in whole or in part, using a voice recognition dictation system. Departure Departure: Impression: Primary Impression: Hypertension Qualified Codes: I10 - Essential (primary) hypertension Disposition: HOME/RESIDENCE PRIOR TO ADM Condition: STABLE Referrals: [facility] [employer] [facility] [facility] (PCP) Patient Instructions: Hypertension, [place]-on-[place]fr[place] Justification of Admission: Justification of Admission: Justification of Admission Dx: N/A LEONOR MARTINEZ DO Jan 12, 2020 12:36
[2020-01-12 13:47] LABS: BASO % 1 % (0-3); EOS # 0.1 x10^3/uL (0.0-0.7); EOS % 3 % (0-3); HEMATOCRIT 38.5 % (36.0-47.0); HEMOGLOBIN 12.9 g/dL (12.0-15.5); LYMPH # 2.1 x10^3/uL (1.0-4.8); LYMPH % 46 % (24-48); MEAN CORPUSCULAR HEMOGLOBIN 32 pg (25-35); MEAN CORPUSCULAR HGB CONC 34 g/dL (31-37); MEAN CORPUSCULAR VOLUME 96 fL (79-100); MONO # 0.3 x10^3/uL (0.0-1.1); MONO % 7 % (0-9); NEUT % 44 % (31-73); PLATELET COUNT 292 x10^3/uL (140-400); RED BLOOD COUNT 4.01 x10^6/uL (3.50-5.40); RED CELL DISTRIBUTION WIDTH 14.3 % (11.5-14.5); WHITE BLOOD COUNT 4.5 x10^3/uL (4.0-11.0)
[2020-01-12 13:49] LABS: CALCIUM 8.3 mg/dL (8.5-10.1); GFR 64.9
[2020-01-12 13:55] LABS: ALBUMIN 3.6 g/dL (3.4-5.0); ALBUMIN/GLOBULIN RATIO 0.8 (1.0-1.7); TOTAL BILIRUBIN 0.3 mg/dL (0.2-1.0); TOTAL PROTEIN 8.1 g/dL (6.4-8.2)
[2020-01-12 14:17] LABS: BILIRUBIN,URINE NEG (NEG); CLARITY,URINE CLEAR; COLOR,URINE STRAW; GLUCOSE,URINE NEG (NEG); NITRITE,URINE NEG (NEG); UROBILINOGEN,URINE 0.2 mg/dL (0.2 mg/dL)
[2020-01-12 14:18] LABS: BACTERIA,URINE 0 /HPF (0-FEW); RBC,URINE 0 /HPF (0-2); SQUAMOUS EPITHELIAL CELL,UR OCC /LPF; WBC,URINE OCC /HPF (0-4)
== END 2020-01-12 14:21 | disposition home or self-care (01) ==
LOC: ER 11:34
DX: I10 Essential (primary) hypertension (principal); E03.9 Hypothyroidism, unspecified; Z88.0 Allergy status to penicillin; Z88.1 Allergy status to other antibiotic agents; Z88.8 Allergy status to other drugs, medicaments and biological substances
CPT/HCPCS: 36415; 80053; 81001; 85025; 99283

== ENCOUNTER 2020-05-04 17:00 | Inpatient (IN) | payer MEDICARE, BC ==
[~2020-05-04] VITALS: Ht 165.1 cm; Wt 72.9 kg
[~2020-05-04 17:00] MED LIST changes: +AMLO-186 PO; -AMLO5TAB10 PO
[2020-05-04 17:03] VITALS: BP 169/93
[2020-05-04] MEDS ORDERED: traMADol 50 MG TABLET PO PRN (18:15)
[2020-05-04] MEDS ORDERED: ZOLPIDEM 5 MG TABLET. PO PRN (18:30)
[2020-05-04] MEDS ORDERED: ONDANSETRON ODT 4 MG TAB.RAPDIS PO PRN (18:30)
[2020-05-04] MEDS ORDERED: IV 1/2 NORMAL SALINE 1,000 ML IV PRN (18:30)
[2020-05-04] MEDS ORDERED: LEVO125T PO (18:39)
[2020-05-04] MEDS ORDERED: guaiFENesin/CODEINE 100mg/10mg 5 ML LIQUID PO PRN (18:45)
[2020-05-04] MEDS ORDERED: METO-239 PO ×2 (18:46)
[2020-05-04] MEDS ORDERED: PANTOPRAZOLE 40 MG TABLET. PO ONE (19:00)
[2020-05-04] MEDS ORDERED: ACETAMINOPHEN 325 MG TABLET PO ONE (19:00)
[2020-05-04 20:11] VITALS: BP 178/90
[2020-05-04] MEDS: CYCLOBENZAPRINE 10 MG TABLET. PO SCH (21:00)
[2020-05-04] MEDS ORDERED: METOPROLOL SUCC 24HR ER 50 MG TAB.ER.24H. PO SCH (21:00)
[2020-05-04 22:50] VITALS: BP 176/84
[2020-05-04] MEDS: METOPROLOL SUCC 24HR ER 50 MG TAB.ER.24H. PO SCH (23:43)
[2020-05-05 05:16] VITALS: BP 167/91
[2020-05-05] MEDS: LEVOTHYROXINE 125 MCG TABLET PO SCH (06:00)
[2020-05-05] MEDS ORDERED: LEVOTHYROXINE 112 MCG TABLET PO SCH (06:00)
[2020-05-05 07:03] LABS: BASO % 0 % (0-3); EOS # 0.1 x10^3/uL (0.0-0.7); EOS % 3 % (0-3); HEMATOCRIT 36.8 % (36.0-47.0); HEMOGLOBIN 12.2 g/dL (12.0-15.5); LYMPH % 47 % (24-48); MEAN CORPUSCULAR HEMOGLOBIN 32 pg (25-35); MEAN CORPUSCULAR HGB CONC 33 g/dL (31-37); MEAN CORPUSCULAR VOLUME 97 fL (79-100); MONO # 0.4 x10^3/uL (0.0-1.1); MONO % 9 % (0-9); NEUT # 1.8 x10^3uL (1.8-7.7); NEUT % 42 % (31-73); PLATELET COUNT 297 x10^3/uL (140-400); WHITE BLOOD COUNT 4.4 x10^3/uL (4.0-11.0)
[2020-05-05 07:08] LABS: FECAL OB PT NEGATIVE (NEG)
[2020-05-05 07:17] LABS: CALCIUM 8.2 mg/dL (8.5-10.1); CREATININE 0.9 mg/dL (0.6-1.0); GFR 73.3; POTASSIUM 3.9 mmol/L (3.5-5.1)
[2020-05-05] MEDS: PANTOPRAZOLE 40 MG TABLET. PO SCH (07:30)
--- NOTE | 2020-05-05 08:20 | RAD ---
EXAM: CHEST PA LATERAL, CT ABDOMEN PELVIS WO CONTRAST INDICATION: Reason: soa / Spl. Instructions: / History: . TECHNIQUE: PA and lateral views COMPARISON: Chest x-ray 06/22/2019 FINDINGS: The heart size is normal. The great vessels show aortic calcification and tortuosity similar to prior.. There is no hilar or mediastinal mass. The lungs are clear. There is no pleural effusion or pneumothorax. There are no significant osseous abnormalities. IMPRESSION: No active cardiopulmonary disease. EXAM: CT Abdomen and Pelvis without IV contrast INDICATION: Epigastric abdominal pain TECHNIQUE: Multi-detector row CT images were acquired from the lung bases through the abdomen and pelvis without the use of IV contrast. Sagittal and coronal images were acquired from the transaxial data. All CT scans performed at this facility utilize dose optimization techniques as appropriate to the exam, including the following: Automated exposure control and adjustment of the mA and/or KV according to patient size (this includes techniques or standardized protocols for targeted exams where dose is indication/reason for exam). ORAL CONTRAST: not administered COMPARISON: None FINDINGS: The absence of IV contrast limits evaluation of soft tissue pathology. LOWER CHEST: Small epiphrenic diverticulum or sliding hiatal hernia. Lung bases otherwise clear. LIVER: Numerous circumscribed low density lesions, statistically likely to be cysts, largest in the right hepatic lobe measuring 4.4 cm in hepatic segment 7. BILIARY SYSTEM: Gallbladder is unremarkable. Bile ducts are not dilated. PANCREAS: Unremarkable SPLEEN: Unremarkable ADRENALS: Unremarkable KIDNEYS & URETERS: Bilateral right greater than left renal cortical scarring and exophytic 1 cm lesion in the left kidney to a mean density of 18 HU at the superior pole, likely a hemorrhagic or proteinaceous cyst. This is incompletely characterized without IV contrast. BLADDER: Distended. Otherwise unremarkable. REPRODUCTIVE ORGANS: Hysterectomy. No adnexal mass. GASTROINTESTINAL: No findings of bowel obstruction or perforation. There is mild wall thickening questioned in the third portion of the duodenum (image 50 of series 2). Otherwise no bowel inflammatory process is identified. The appendix is not well seen but there are no findings of acute appendicitis. Scattered colonic diverticuli are present. No findings of acute diverticulitis noted. MESENTERY/PERITONEUM/RETROPERITONEUM: Unremarkable VASCULAR: Scattered arterial calcifications. LYMPH NODES: Unremarkable OSSEOUS & SOFT TISSUES: Grade 1 anterolisthesis of L4 on L5 with L5 being partially sacralized. IMPRESSION: Possible mild duodenitis. Otherwise no acute findings in the abdomen or pelvis on noncontrast CT. Electronically signed by: Candelario Huntley MD (05/05/2020 8:17 AM) [id number]
[2020-05-05] MEDS: CYCLOBENZAPRINE 10 MG TABLET. PO SCH (09:00)
[2020-05-05 09:54] LABS: ALBUMIN 3.4 g/dL (3.4-5.0); DIRECT BILIRUBIN 0.1 mg/dL (0.0-0.2); TOTAL BILIRUBIN 0.3 mg/dL (0.2-1.0); TOTAL PROTEIN 7.5 g/dL (6.4-8.2)
[2020-05-05 11:17] VITALS: BP 165/80
[2020-05-05 12:09] LABS: CLARITY,URINE CLEAR; COLOR,URINE YELLOW
[2020-05-05 12:10] LABS: BACTERIA,URINE 0 /HPF (0-FEW); BILIRUBIN,URINE NEG (NEG); GLUCOSE,URINE NEG (NEG); NITRITE,URINE NEG (NEG); SQUAMOUS EPITHELIAL CELL,UR OCC /LPF; UROBILINOGEN,URINE 0.2 mg/dL (0.2 mg/dL); WBC,URINE OCC /HPF (0-4)
[2020-05-05] MEDS: METOPROLOL SUCC 24HR ER 25 MG TAB.ER.24H. PO SCH (14:58)
[2020-05-05 15:17] VITALS: BP 158/87
[2020-05-05 19:12] VITALS: BP 161/81
[2020-05-05] MEDS ORDERED: ACETAMINOPHEN 325 MG TABLET PO PRN (20:45)
[2020-05-05] MEDS: METOPROLOL SUCC 24HR ER 50 MG TAB.ER.24H. PO SCH (21:10)
[2020-05-06 05:33] VITALS: BP 187/83
[2020-05-06] MEDS ORDERED: amLODIPine BESYLATE 5 MG TABLET PO ONE (06:15)
[2020-05-06] MEDS: LEVOTHYROXINE 125 MCG TABLET PO SCH (06:27)
[2020-05-06 11:40] VITALS: BP 172/93
[2020-05-06] MEDS: PANTOPRAZOLE 40 MG TABLET. PO SCH (15:00)
[2020-05-06] MEDS: METOPROLOL SUCC 24HR ER 25 MG TAB.ER.24H. PO SCH (15:02)
[2020-05-06] MEDS: amLODIPine BESYLATE 10 MG TABLET PO SCH (15:03)
[2020-05-06 15:55] VITALS: BP 176/90
--- NOTE | 2020-05-06 16:15 | RAD ---
Examination: ABDOMEN COMPLETE History: Reason: abd pain right upper qurdrant / Spl. Instructions: / History: Comparison/Correlation: 04/28/2017 and 05/04/2020 CT abdomen and pelvis Findings: Complete upper abdominal ultrasound exam was performed. Multiple simple cysts of the liver are present and stable. Gallbladder is unremarkable. No cholelithiasis. No pericholecystic fluid. Portal venous flow is unremarkable. Common bile duct is unremarkable. No biliary dilatation. Hepatic cysts are present. Right kidney measures 8.5 cm 4.5 cm x 4.2 cm. Left kidney measures 9.5 cm x 5.1 cm x 4.4 center. No definite hydronephrosis. Mild fullness of the left renal pelvis is similar upon correlation with prior exams. Left extrarenal pelvis is present. Renal contours are unremarkable. Renal echotexture is borderline. Spleen is unremarkable but not well visualized. Inferior vena cava is unremarkable. Proximal pancreas is normal. Distal pancreas is obscured by bowel gas. Abdominal aorta and inferior vena cava only partially visualized and unremarkable. Impression: No acute process. Electronically signed by: Brad Mckenna MD (05/06/2020 4:12 PM) [id number]
[2020-05-06 19:22] VITALS: BP 165/84
[2020-05-06] MEDS: METOPROLOL SUCC 24HR ER 50 MG TAB.ER.24H. PO SCH (20:17)
[2020-05-06 23:15] VITALS: BP 156/81
--- NOTE | 2020-05-07 01:26 | PN ---
DATE: 05/05/2020 SUBJECTIVE: The patient came in with severe nausea, projectile vomiting. The patient seems to be resting fairly comfortably, making fairly good progress, having a full liquid to soft diet. OBJECTIVE: VITAL SIGNS: Blood pressure elevated 160/80 (NC), respiratory ____, pulse 80, afebrile. GENERAL: The patient is alert and oriented. LUNGS: Diminished throughout, poor movement of air. CARDIOVASCULAR: Regular sinus rhythm. ABDOMEN: Soft, diffuse tenderness primarily in the right upper quadrant as well as the mid epigastric area, but no rebound or guarding. EXTREMITIES: No clubbing, cyanosis nor edema. ASSESSMENT AND PLAN: Otherwise, the patient seems to continue to make fairly good progress overall. We will get an abdominal ultrasound on her and make further assessment on her per those situations as noted. SANDEE CHAVEZ MD DR: MANASA/alexa JOB#: [id number] / [id number]
[2020-05-07] MEDS: LEVOTHYROXINE 125 MCG TABLET PO SCH (05:54)
[2020-05-07 06:14] VITALS: BP 150/89
[2020-05-07] MEDS: PANTOPRAZOLE 40 MG TABLET. PO SCH (07:37)
[2020-05-07] MEDS: amLODIPine BESYLATE 10 MG TABLET PO SCH (07:37)
[2020-05-07] MEDS: METOPROLOL SUCC 24HR ER 25 MG TAB.ER.24H. PO SCH (07:37)
[2020-05-07] MEDS ORDERED: amLODIPine BESYLATE 5 MG TABLET PO SCH (09:00)
[2020-05-07] MEDS ORDERED: PANT40TA3 PO (10:35)
[2020-05-07] MEDS ORDERED: METO5TAB55 PO (10:36)
[2020-05-07] MEDS ORDERED: ACYC30OI TP (10:39)
[2020-05-07 10:45] VITALS: BP 160/89
--- NOTE | 2020-05-07 11:19 | PN ---
DATE: SUBJECTIVE: A 79-year-old female in with projectile vomiting, abdominal pain, still complains of pain in her right mid quadrant to right upper quadrant area. Her abdominal ultrasound today was basically unremarkable. Her CT scan did show some thickening of the bowel. She has had an EGD and the like. She has been placed on Protonix without much assistance there. OBJECTIVE: VITAL SIGNS: The patient is not running any temperature. Blood pressure has come down to 165/80, respiratory rate 18, pulse 70, afebrile. GENERAL: The patient is alert and oriented delightful lady. LUNGS: Diminished throughout, but basically clear. CARDIOVASCULAR: Regular sinus rhythm. ABDOMEN: Soft, nontender, no rebounding except in the right mid quadrant area, which still presents somewhat of a problem in that there is some tenderness there. The cause of this is unknown. She may need a video endoscopy to capture what was going on in that area, CT EGD, colonoscopy, abdominal ultrasound that was not done, any further evaluation may need an upper GI with small bowel follow through to assess the situation. We will advance her diet and make further adjustment on her as indicated. IMPRESSION: Projectile vomiting, abdominal pain, dehydration, make further adjustments on her medications and then possible discharge recommendations. SANDEE CHAVEZ MD DR: MANASA/alexa JOB#: [id number] / [id number]
--- NOTE | 2020-05-29 20:36 | DS ---
DATE OF DISCHARGE: 05/07/2020 HOSPITAL COURSE: A 79-year-old female initially came in with severe nausea and projectile vomiting. The patient is resting comfortably, made good progress. She was hydrated and given some PPIs. The patient had an abdominal ultrasound performed, which was basically no acute process was noted. She also had a CT scan of abdomen and pelvis with contrast and that showed some mild duodenitis, but other than that was unremarkable. The patient made relatively good progress. The patient was discharged home, picked up by her daughter. She will follow up with Dr. Miranda to have procedures that were performed as indicated. The patient's CBC was unremarkable. Chemistries were basically unremarkable. BUN and creatinine 10 and 0.9 and blood sugar about 100. Lipase was normal. Liver enzymes were normal. Stool was Hemoccult negative. The patient will be discharged home. IMPRESSION: Projectile vomiting. Also, the patient will be followed by Dr. Miranda and make further evaluation. See MRAD. SANDEE CHAVEZ MD DR: MANASA/alexa JOB#: [id number] / [id number]
== END 2020-05-07 12:43 | disposition home or self-care (01) | DRG 391 ==
LOC: 1 SOUTH 17:00
PROVIDERS: ADMIT Family Medicine; ATTEND Family Medicine
DX: K29.80 Duodenitis without bleeding (principal); K85.00 Idiopathic acute pancreatitis without necrosis or infection; E86.0 Dehydration; I10 Essential (primary) hypertension; E05.90 Thyrotoxicosis, unspecified without thyrotoxic crisis or storm; R11.12 Projectile vomiting; Z88.0 Allergy status to penicillin; Z88.8 Allergy status to other drugs, medicaments and biological substances; Z79.899 Other long term (current) drug therapy
CPT/HCPCS: 36415; 71046; 74176; 76700; 80048; 80076; 81001; 82274; 83690; 85025

== ENCOUNTER → 2020-08-27 | Outpatient (CLI) | payer MEDICARE, BC ==
[~2020-08-27] MED LIST changes: +ACYC30OI TP; +LEVO125T PO; +METO-239 PO; +METO5TAB55 PO; +PANT40TA3 PO
--- NOTE | 2020-08-27 09:51 | RAD ---
EXAM: Bilateral digital screening mammogram with tomosynthesis. HISTORY: 79-year-old female presents for screening mammography. TECHNIQUE: Full-field digital craniocaudal and mediolateral oblique 2D and 3D tomosynthesis images of both breasts are obtained for evaluation. Computer aided detection was applied. COMPARISON: 08/26/2019 and 08/23/2018 BREAST PARENCHYMAL DENSITY: Level B - Scattered fibroglandular densities. FINDINGS: There is no new suspicious mass, microcalcification or region of architectural distortion. There is stable areas of asymmetry and nodularity within both breasts. There is a stable prominent le ft axillary tail lymph node. IMPRESSION: BI-RADS Category 2: Benign finding(s). RECOMMENDATION: Annual mammography is recommended. If your mammogram demonstrates that you have dense breast tissue, which could hide abnormalities, and if you have other risk factors for breast cancer that have been identified, you might benefit from s upplemental screening tests that may be suggested by your ordering physician. Dense breast tissue, i n and of itself, is a relatively common condition. This information is not provided to cause undue c oncern, but rather to raise your awareness and to promote discussion with your physician regarding th e presence of other risk factors, in addition to dense breast tissue. A report of your mammography re sults will be sent to you and your physician. You should contact your physician if you have any ques tions or concerns regarding this report. Mammography is a sensitive method for finding small breast cancers, but it does not detect them all a nd is not a substitute for careful clinical examination. A negative mammogram does not negate a clin ically suspicious finding and should not result in delay in biopsying a clinically suspicious abnorma lity. PQRS compliance statement - Patient information was entered into a reminder system with a target due date for the next mammogram. "Our facility is accredited by the [employer] Mammography Program." Electronically signed by: Melanie Simental MD (08/27/2020 9:48 AM) [id number]
== END ==
LOC: MAMMO 09:15
PROVIDERS: ATTEND Family Medicine
DX: Z12.31 Encounter for screening mammogram for malignant neoplasm of breast (principal)
CPT/HCPCS: 77063; 77067

== ENCOUNTER → 2020-12-06 | Outpatient (CLI) | payer MEDICARE, BC ==
[2020-12-06 15:24] LABS: BASO % 0 % (0-3); EOS # 0.2 x10^3/uL (0.0-0.7); EOS % 4 % (0-3); HEMATOCRIT 35.9 % (36.0-47.0); HEMOGLOBIN 12.1 g/dL (12.0-15.5); LYMPH # 2.1 x10^3/uL (1.0-4.8); LYMPH % 48 % (24-48); MEAN CORPUSCULAR HEMOGLOBIN 33 pg (25-35); MEAN CORPUSCULAR HGB CONC 34 g/dL (31-37); MEAN CORPUSCULAR VOLUME 96 fL (79-100); MONO # 0.4 x10^3/uL (0.0-1.1); MONO % 10 % (0-9); NEUT # 1.7 x10^3uL (1.8-7.7); NEUT % 39 % (31-73); PLATELET COUNT 304 x10^3/uL (140-400); RED BLOOD COUNT 3.74 x10^6/uL (3.50-5.40); RED CELL DISTRIBUTION WIDTH 14.1 % (11.5-14.5); WHITE BLOOD COUNT 4.5 x10^3/uL (4.0-11.0)
[2020-12-07 16:09] LABS: KAPPA FREE 21.2 mg/L (3.3-19.4); KAPPA LAMBDA RATIO 1.67 (0.26-1.65); LAMBDA FREE 12.7 mg/L (5.7-26.3)
[2020-12-07 19:28] LABS: FREE T4 1.08 ng/dL (0.76-1.46); THYROID STIM HORMONE (TSH) 1.127 uIU/mL (0.358-3.740)
== END ==
LOC: LAB 14:24
PROVIDERS: ATTEND Internal Medicine Hematology & Oncology
DX: R61 Generalized hyperhidrosis (principal)
CPT/HCPCS: 36415; 83520; 84439; 84443; 85025; 86334; 86704; 86706; 86803; 87340

== ENCOUNTER 2020-12-11 10:18 | Emergency (ER) | payer MEDICARE, BC ==
[~2020-12-11] VITALS: Ht 167.6 cm; Wt 73.0 kg
[2020-12-11] MEDS ORDERED: METOCLOPRAMIDE HCL 10 MG/2 ML VIAL. IVP ONE (10:30)
[2020-12-11] MEDS ORDERED: DEXAMETHASONE SOD PHOS 10 MG/ML VIAL. IV ONE (10:30)
[2020-12-11] MEDS ORDERED: IV NORMAL SALINE 1,000ML 1,000 ML IV ONE (10:30)
[2020-12-11] MEDS ORDERED: diphenhydrAMINE 50 MG/ML VIAL IVP ONE (10:30)
--- NOTE | 2020-12-11 10:48 | RAD ---
CT HEAD INDICATION: Reason: headache, hypertension / Spl. Instructions: / History: COMPARISON: 12/01/2017. Exposure: One or more of the following individualized dose reduction techniques were utilized for thi s examination: 1. Automated exposure control 2. Adjustment of the mA and/or kV according to patient size 3. Use of iterative reconstruction technique TECHNIQUE: 5 mm contiguous axial images were obtained from the skull base to the vertex in both bone and soft tissue algorithm. FINDINGS: No abnormal attenuation within the brain parenchyma. No evidence of acute intracranial hemorrhage. No extra-axial fluid collections. No mass effect or midline shift. Ventricular size is appropriate. Basal cisterns are patent. No fractures identified.Dill-white differentiation is preserved.Globes and orbits are within normal l imits. Paranasal sinuses and mastoid air cells are clear. IMPRESSION: No acute intracranial findings. Electronically signed by: Pee Joaquin MD (12/11/2020 10:46 AM) [id number]
[2020-12-11] MEDS ORDERED: KETOROLAC 15 MG/ML VIAL. IVP ONE (11:15)
[2020-12-11 11:32] LABS: BASO % 0 % (0-3); EOS # 0.1 x10^3/uL (0.0-0.7); EOS % 3 % (0-3); HEMATOCRIT 35.9 % (36.0-47.0); HEMOGLOBIN 12.3 g/dL (12.0-15.5); LYMPH # 1.8 x10^3/uL (1.0-4.8); LYMPH % 41 % (24-48); MEAN CORPUSCULAR HEMOGLOBIN 33 pg (25-35); MEAN CORPUSCULAR HGB CONC 34 g/dL (31-37); MEAN CORPUSCULAR VOLUME 95 fL (79-100); MONO # 0.4 x10^3/uL (0.0-1.1); MONO % 10 % (0-9); NEUT % 45 % (31-73); PLATELET COUNT 302 x10^3/uL (140-400); RED BLOOD COUNT 3.76 x10^6/uL (3.50-5.40); RED CELL DISTRIBUTION WIDTH 14.4 % (11.5-14.5); WHITE BLOOD COUNT 4.4 x10^3/uL (4.0-11.0)
[2020-12-11 12:04] LABS: HEMOGLOBIN ISTAT 12.6 gm/dL; POTASSIUM ISTAT 3.7 mmol/L (3.5-5.0)
[2020-12-11 12:10] VITALS: BP 170/100
[2020-12-11] MEDS ORDERED: BUTA1TAB23 PO (12:34)
--- NOTE | 2020-12-11 12:41 | PHYS DOC ---
Past History Past Medical History: Hypertension, Hypothyroid Past Surgical History: Hysterectomy, Other Additional Past Surgical Histo: thyroidectomy and parathyroidectomy, 4 births vaginally, hysterecomy Smoking: Non-smoker Alcohol Use: None Drug Use: None General Adult EDM: Chief Complaint: HYPERTENSION HPI: HPI: 80-year-old female presents with report of acute on chronic headache which reoccurred today. Patient reports primarily to her right side and feels it is attributed to her sinus issues. Patient reports she has seen her PCP and ENT for same. Patient reports she has been on several antibiotics and other therapies without significant results. Patient also has had some imaging in the past which also reportedly has been normal. Patient was set to have an MRI today for further evaluation. Patient reports her pain was significant that she decided she could not tolerate the MRI and therefore rescheduled it. Patient had originally presented to urgent care secondary to her pain. Urgent care provider evaluated patient and noted significantly elevated blood pressure of 200s over 100s and therefore sent patient to the emergency department for further evaluation and treatment. Patient does report history of hypertension for which she is prescribed medications. Patient did not take any of her prescribed medications this morning. Review of Systems: Review of Systems: Constitutional: Denies fever or chills Eyes: Denies redness; reports photophobia HENT: Reports nasal congestion; denies sore throat Respiratory: Denies cough or shortness of breath Cardiovascular: Denies chest pain or palpitations GI: Denies abdominal pain; reports nausea : Denies dysuria or hematuria Musculoskeletal: Denies back pain or neck pain Integument: Denies rash or skin lesions Neurologic: Reports headache; denies focal weakness or sensory changes Complete systems were reviewed and found to be within normal limits, except as documented in this note. Current Medications: Current Meds: Current Medications Medications (Trade) Dose Ordered Sig/Cuco Start Time Stop Time Status Last Admin Dose Admin Dexamethasone Sodium Phosphate (Decadron) 10 mg 1X ONCE 12/11/20 10:30 12/11/20 10:31 DC 12/11/20 11:00 10 MG Diphenhydramine HCl (Benadryl) 25 mg 1X ONCE 12/11/20 10:30 12/11/20 10:31 DC 12/11/20 10:59 25 MG Ketorolac Tromethamine (Toradol 15mg Vial) 10 mg 1X ONCE 12/11/20 11:15 12/11/20 11:16 DC 12/11/20 11:15 10 MG Metoclopramide HCl (Reglan Vial) 10 mg 1X ONCE 12/11/20 10:30 12/11/20 10:31 DC 12/11/20 10:59 10 MG Sodium Chloride 1,000 ml @ 1,000 mls/hr 1X ONCE 12/11/20 10:30 12/11/20 11:29 DC 12/11/20 10:30 1,000 MLS/HR Allergies: Allergies: Allergies Coded Allergies Type Severity Reaction Last Updated Verified MARIANA Inhibitors Allergy Intermediate 12/17/17 Yes Penicillins Allergy Intermediate 12/17/17 Yes lansoprazole Allergy Intermediate 12/17/17 Yes moxifloxacin Allergy Intermediate 12/17/17 Yes promethazine Allergy Unknown 12/17/17 Yes tetracycline Allergy Unknown 12/17/17 Yes valsartan Allergy Unknown 12/17/17 Yes ceftriaxone Adverse Reaction Intermediate 12/17/17 Yes Physical Exam: PE: Constitutional: Well developed, well nourished, appears uncomfortable, non-toxic appearance HENT: Normocephalic, atraumatic Eyes: PERRL, EOMI, conjunctiva normal, no discharge, no nystagmus noted, photophobia Neck: Normal range of motion, no tenderness, supple Lungs & Thorax: No respiratory distress, equal chest rise and fall Abdomen: Soft, no tenderness Skin: Warm, dry, no erythema, no rash Back: No tenderness, no CVA tenderness Extremities: No tenderness, ROM intact, no edema Neurologic: Alert and oriented X 3, normal motor function, normal sensory function, no focal deficits noted, cerebellar function intact Psychologic: Affect normal, judgment normal Current Patient Data: Labs: Laboratory Tests Test 12/11/20 10:23 12/11/20 11:01 White Blood Count 4.4 x10^3/uL (4.0-11.0) Red Blood Count 3.76 x10^6/uL (3.50-5.40) Hemoglobin 12.3 g/dL (12.0-15.5) Hematocrit 35.9 % (36.0-47.0) L Mean Corpuscular Volume 95 fL (79-100) Mean Corpuscular Hemoglobin 33 pg (25-35) Mean Corpuscular Hemoglobin Concent 34 g/dL (31-37) Red Cell Distribution Width 14.4 % (11.5-14.5) Platelet Count 302 x10^3/uL (140-400) Neutrophils (%) (Auto) 45 % (31-73) Lymphocytes (%) (Auto) 41 % (24-48) Monocytes (%) (Auto) 10 % (0-9) H Eosinophils (%) (Auto) 3 % (0-3) Basophils (%) (Auto) 0 % (0-3) Neutrophils # (Auto) 2.0 x10^3uL (1.8-7.7) Lymphocytes # (Auto) 1.8 x10^3/uL (1.0-4.8) Monocytes # (Auto) 0.4 x10^3/uL (0.0-1.1) Eosinophils # (Auto) 0.1 x10^3/uL (0.0-0.7) Basophils # (Auto) 0.0 x10^3/uL (0.0-0.2) POC Hemoglobin 12.6 gm/dL POC Hematocrit 37 % POC Sodium 143 mmol/L (135-145) POC Potassium 3.7 mmol/L (3.5-5.0) POC Chloride 102 mmol/L (98-110) POC Total CO2 27 mmol/L (23-32) Anion Gap 19 mmol/L (6-14) H POC Blood Urea Nitrogen 12 mg/dL (8-26) POC Creatinine 0.8 mg/dL (0.5-1.4) Glucose Level 116 mg/dL (60-99) H POC Ionized Calcium (Roselia) 1.05 mmol/L (1.13-1.32) L POC Troponin I < 0.17 ng/ml (<0.08) Vital Signs: Vital Signs Date Time Temp Pulse Resp B/P (MAP) Pulse Ox O2 Delivery O2 Flow Rate FiO2 12/11/20 12:10 80 18 170/100 (123) 98 12/11/20 11:15 98.5 Room Air EKG: EKG: [] Radiology/Procedures: Radiology/Procedures: PROCEDURE: CT HEAD WO CONTRAST CT HEAD INDICATION: Reason: headache, hypertension / Spl. Instructions: / History: COMPARISON: 12/01/2017. Exposure: One or more of the following individualized dose reduction techniques were utilized for this examination: 1. Automated exposure control 2. Adjustment of the mA and/or kV according to patient size 3. Use of iterative reconstruction technique TECHNIQUE: 5 mm contiguous axial images were obtained from the skull base to the vertex in both bone and soft tissue algorithm. FINDINGS: No abnormal attenuation within the brain parenchyma. No evidence of acute intracranial hemorrhage. No extra-axial fluid collections. No mass effect or midline shift. Ventricular size is appropriate. Basal cisterns are patent. No fractures identified.Dill-white differentiation is preserved.Globes and orbits are within normal limits. Paranasal sinuses and mastoid air cells are clear. IMPRESSION: No acute intracranial findings. Electronically signed by: Pee Joaquin MD (12/11/2020 10:46 AM) [id number] Heart Score: C/O Chest Pain: N/A Course & Med Decision Making: Course & Med Decision Making Pertinent Labs and Imaging studies reviewed. (See chart for details) Patient presents with acute on chronic headache for which she has seen her PCP and ENT. Patient was scheduled for an MRI today but had significant pain and therefore called to reschedule. Patient had originally followed up at urgent care at [facility] but upon notation of patient's blood pressure of 200s over 100s was promptly sent down to the ER for further evaluation. Patient does report history of hypertension and did not take her medication this morning. Patient does appear uncomfortable given headache. Headache cocktail provided. CT head without acute process. Labs obtained and posted to chart. Patient reports interval improvement of symptoms. Blood pressure also improved. Patient advised to take her prescribed medication upon returning home. Patient stable for discharge with outpatient follow-up with PCP/neurology. Neurology referral provided. Discussed findings and plan with patient, who acknowledges understanding and agreement. Moustapha Disclaimer: Moustapha Disclaimer: This electronic medical record was generated, in whole or in part, using a voice recognition dictation system. Departure Departure: Impression: Primary Impression: Headache Qualified Codes: R51.9 - Headache, unspecified Additional Impression: Hypertension Qualified Codes: I10 - Essential (primary) hypertension Disposition: HOME / SELF CARE / HOMELESS Condition: STABLE Referrals: DYAN VARGAS (PCP) XAVIER MORA MD Patient Instructions: Headache, FAQs, Hypertension, [id number] Additional Instructions: Please take your prescribed medication upon returning home. Monitor your blood pressure as some adjustment of your blood pressure medication may be required by your family physician. Please follow through with previously ordered MRI for further evaluation. May also use [id number] ibuprofen or Aleve for pain. Increase fluid hydration. Scripts Butalb/Acetaminophen/Caffeine ([id number] 50-325-40) 1 Each Tablet 1 EACH PO Q6HRS PRN for HEADACHE, #14 TAB Prov: ROBEL BOOKER DO 12/11/20 ROBEL BOOKER DO Dec 11, 2020 12:41
[2020-12-11 21:16] LABS: ALBUMIN 3.6 g/dL (3.4-5.0); ALBUMIN/GLOBULIN RATIO 0.9 (1.0-1.7); ALK PHOS 81 U/L (46-116); ALT (SGPT) 25 U/L (14-59); ANION GAP 9 (6-14); AST (SGOT) 16 U/L (15-37); BLOOD UREA NITROGEN 11 mg/dL (7-20); BUN/CREATININE RATIO 12 (6-20); CALCIUM 8.1 mg/dL (8.5-10.1); CARBON DIOXIDE 28 mmol/L (21-32); CHLORIDE 106 mmol/L (98-107); CREATININE 0.9 mg/dL (0.6-1.0); GFR 73.1; GLUCOSE 112 mg/dL (70-99); POTASSIUM 3.8 mmol/L (3.5-5.1); SODIUM 143 mmol/L (136-145); TOTAL BILIRUBIN 0.3 mg/dL (0.2-1.0); TOTAL PROTEIN 7.8 g/dL (6.4-8.2)
== END 2020-12-11 12:55 | disposition home or self-care (01) ==
LOC: ER 10:18
DX: I10 Essential (primary) hypertension (principal); R51.9 Headache, unspecified; E03.9 Hypothyroidism, unspecified; Z88.0 Allergy status to penicillin; Z88.1 Allergy status to other antibiotic agents; Z88.8 Allergy status to other drugs, medicaments and biological substances
CPT/HCPCS: 36415; 70450; 80047; 80053; 82553; 83735; 84484; 85025; 96361; 96374; 96375; 99284; J1100; J1200; J1885; J2765; J7030

== ENCOUNTER 2021-07-29 19:30 | Emergency (ER) | payer MEDICARE, BC ==
[~2021-07-29] VITALS: Ht 167.6 cm; Wt 72.1 kg
[~2021-07-29 19:30] MED LIST changes: +BUTA1TAB23 PO
[2021-07-29] MEDS ORDERED: IV NORMAL SALINE 1,000ML 1,000 ML IV SCH (20:00)
[2021-07-29] MEDS ORDERED: LIDO:MAALOX 1:1 20 ML SINGLE DOSE. PO ONE (20:00)
[2021-07-29] MEDS ORDERED: ONDANSETRON PF 4 MG/2 ML VIAL. IVP ONE (20:00)
--- NOTE | 2021-07-29 20:03 | PHYS DOC ---
Past History Past Medical History: Hypertension, Hypothyroid (FILIBERTO WORRELL APRN) Past Surgical History: Hysterectomy, Other Additional Past Surgical Histo: thyroidectomy and parathyroidectomy, 4 births vaginally, hysterectomy (FILIBERTO WORRELL APRN) Smoking: Non-smoker Alcohol Use: None Drug Use: None (FILIBERTO WORRELL APRN) General Adult EDM: Chief Complaint: ABDOMINAL PAIN HPI: HPI: Patient is a 80-year-old female who presents to the emergency department for epigastric and left upper quadrant abdominal pain that started this evening. Patient reports that prior to abdominal pain she does have some grapes. She reports taking up to Bismatrol and Gaviscon prior to arrival. She rates her pain 10 out of 10. Patient reports episode of loose stools and chills. Patient reports that her last bowel movement was yesterday. Patient denies nausea, vomiting, urinary complaints, blood in her stools, fevers, recent travel, sick exposure, recent antibiotic use. Patient does have a history of hypertension her blood pressure is elevated today, she reports that she has not taken her medications tonight. (FILIBERTO WORRELL APRN) Review of Systems: Review of Systems: Constitutional: negative unless reported in HPI Eyes: negative unless reported in HPI HENT: negative unless reported in HPI Respiratory: negative unless reported in HPI Cardiovascular: negative unless reported in HPI GI: negative unless reported in HPI : negative unless reported in HPI Musculoskeletal: negative unless reported in HPI Integument: negative unless reported in HPI Neurologic: negative unless reported in HPI Endocrine: negative unless reported in HPI Lymphatic: negative unless reported in HPI Psychiatric: negative unless reported in HPI (FILIBERTO WORRELL APRN) Allergies: Allergies: Allergies Coded Allergies Type Severity Reaction Last Updated Verified MARIANA Inhibitors Allergy Intermediate 12/17/17 Yes Penicillins Allergy Intermediate 12/17/17 Yes lansoprazole Allergy Intermediate 12/17/17 Yes moxifloxacin Allergy Intermediate 12/17/17 Yes promethazine Allergy Unknown 12/17/17 Yes tetracycline Allergy Unknown 12/17/17 Yes valsartan Allergy Unknown 12/17/17 Yes ceftriaxone Adverse Reaction Intermediate 12/17/17 Yes (FILIBERTO WORRELL APRN) Physical Exam: PE: Constitutional: Well developed, well nourished, no acute distress, non-toxic appearance. [] HENT: Normocephalic, atraumatic, bilateral external ears normal, oropharynx moist, no oral exudates, nose normal. [] Eyes: PERRL, EOMI, conjunctiva normal, no discharge. [] Neck: Normal range of motion, no stridor Cardiovascular:Heart rate regular rhythm, no murmur [] Lungs & Thorax: Bilateral breath sounds clear to auscultation [] Abdomen: Bowel sounds normal, soft, no masses, no pulsatile masses, tenderness with palpation to left upper and lower quadrant, negative Campbell sign, negative Rovsing sign, no rebound tenderness, no abdominal rigidity or guarding [] Skin: Warm, dry, no erythema, no rash. [] Back: No tenderness, normal range of motion Extremities: No tenderness, no cyanosis, no clubbing, ROM intact, no edema. [] Neurologic: Alert and oriented X 3, normal motor function, normal sensory function, no focal deficits noted. [] Psychologic: Affect normal, judgement normal, mood normal. [] (FILIBERTO WORRELL APRN) Current Patient Data: Labs: Laboratory Tests Test 07/29/21 20:10 07/29/21 20:20 07/29/21 21:10 White Blood Count 8.3 x10^3/uL Red Blood Count 4.00 x10^6/uL Hemoglobin 12.8 g/dL Hematocrit 39.1 % Mean Corpuscular Volume 98 fL Mean Corpuscular Hemoglobin 32 pg Mean Corpuscular Hemoglobin Concent 33 g/dL Red Cell Distribution Width 14.9 % Platelet Count 299 x10^3/uL Neutrophils (%) (Auto) 62 % Lymphocytes (%) (Auto) 29 % Monocytes (%) (Auto) 7 % Eosinophils (%) (Auto) 1 % Basophils (%) (Auto) 1 % Neutrophils # (Auto) 5.2 x10^3uL Lymphocytes # (Auto) 2.4 x10^3/uL Monocytes # (Auto) 0.6 x10^3/uL Eosinophils # (Auto) 0.1 x10^3/uL Basophils # (Auto) 0.1 x10^3/uL Sodium Level 143 mmol/L Potassium Level 4.2 mmol/L Chloride Level 104 mmol/L Carbon Dioxide Level 27 mmol/L Anion Gap 12 Blood Urea Nitrogen 14 mg/dL Creatinine 0.8 mg/dL Estimated GFR (Cockcroft-Gault) 83.7 BUN/Creatinine Ratio 18 Glucose Level 87 mg/dL Calcium Level 8.3 mg/dL Total Bilirubin 0.3 mg/dL Aspartate Amino Transf (AST/SGOT) 26 U/L Alanine Aminotransferase (ALT/SGPT) 31 U/L Alkaline Phosphatase 82 U/L Total Protein 7.8 g/dL Albumin 4.0 g/dL Albumin/Globulin Ratio 1.1 Lipase 55 U/L Urine Collection Type Unknown Urine Color Yellow Urine Clarity Clear Urine pH 7.0 Urine Specific [place] 1.025 Urine Protein Neg Urine Glucose (UA) Neg mg/dL Urine Ketones (Stick) Neg mg/dL Urine Blood Neg Urine Nitrite Neg Urine Bilirubin Neg Urine Urobilinogen Dipstick 0.2 mg/dL Urine Leukocyte Esterase Neg Urine RBC Occ /HPF Urine WBC Occ /HPF Urine Squamous Epithelial Cells Occ /LPF Urine Bacteria 0 /HPF Influenza Type A (Rapid) Negative Influenza Type B (Rapid) Negative SARS-CoV-2 Antigen (Rapid) Negative Troponin I High Sensitivity 20 ng/L Current Medications Medications (Trade) Dose Ordered Sig/Cuco Route PRN Reason Start Time Stop Time Status Last Admin Dose Admin Multi-Ingredient Mouthwash/Gargle (Gi Cocktail) 20 ml 1X ONCE PO 07/29/21 20:00 07/29/21 20:01 DC 07/29/21 20:23 Sodium Chloride 1,000 ml @ 1,000 mls/hr Q1H IV 07/29/21 20:00 07/29/21 20:59 DC 07/29/21 20:24 Fentanyl Citrate (Fentanyl 2ml Vial) 50 mcg 1X ONCE IVP 07/29/21 20:00 07/29/21 20:01 DC 07/29/21 20:28 Ondansetron HCl (Zofran) 4 mg 1X ONCE IVP 07/29/21 20:00 07/29/21 20:01 DC 07/29/21 20:26 Iohexol (Omnipaque 300 Mg/ml) 75 ml 1X ONCE IV 07/29/21 20:30 07/29/21 20:31 DC 07/29/21 20:57 Info (Do NOT chart on this entry -- for MONITORING) 1 each PRN DAILY PRN MC SEE COMMENTS 07/29/21 20:45 07/31/21 20:44 Vital Signs: Vital Signs Date Time Temp Pulse Resp B/P (MAP) Pulse Ox O2 Delivery O2 Flow Rate FiO2 07/29/21 19:40 97.9 87 20 223/116 (151) 98 Room Air (FILIBERTO WORRELL [employer]) EKG: EKG: EKG performed by ER 01/09/2017 shows sinus rhythm with a rate of 84, QTC of 464, no STEMI read by Dr. Johnson [] (FILIBERTO WORRELL APRN) EKG: My interpretation EKG shows a sinus rhythm at 84 bpm. No acute morphology. Some mild left axis changes. But no findings of acute STEMI of contralateral changes. Time of EKG is 2117 hrs. (EN JOHNSON MD) Radiology/Procedures: Radiology/Procedures: []PROCEDURE: CT ABD PELV W/ IV CONTRST ONLY Exam: CT of abdomen and pelvis with INDICATION: Left upper quadrant pain TECHNIQUE: Sequential axial images through the abdomen and pelvis obtained following the administration of 75 mL of Omni 300 IV contrast. Sagittal and coronal reformatted images were reconstructed from the axial data and reviewed. Exposure: One or more of the following in the visualized dose reduction techniques were utilized for this examination: 1. Automated exposure control 2. Adjustment of the MA and/or KV according to patient size 3. Use of iterative of reconstructive technique Comparisons: 05/04/2020 FINDINGS: Heart size is normal. No pericardial visualized lung bases are clear. No pleural effusion. Numerous hypoattenuating cystic lesions at the liver favored represent simple cysts. Spleen, pancreas, gallbladder and adrenals are unremarkable. Kidneys demonstrate symmetric enhancement. No renal or ureteral calculi. Bladder is partially distended. Uterus is absent. No abnormal adnexal mass. Moderate amount of stool is noted in the colon. Distended small bowel loops noted in the left hemiabdomen. Appendix is nonidentified. No free intra- abdominal air or fluid. No obstruction. Abdominal aorta has normal course and caliber. Abdominal vasculature is patent. No enlarged intra-abdominal lymph nodes are identified. No suspicious osseous lesions or acute fractures. IMPRESSION: Mildly distended loops of small bowel in the left hemiabdomen with mild adjacent fat stranding. Findings could relate to enteritis versus ileus. Developing obstruction is also possible. Continued radiographic follow-up is recommended. Electronically signed by: Gregorio Ramirez MD (07/29/2021 9:44 PM) [facility] DICTATED AND SIGNED BY: GREGORIO RAMIREZ MD DATE: 07/29/212128 CC: DYAN VARGAS; EN JOHNSON MD; FILIBERTO WORRELL APRN ~MTH0 0 (FILIBERTO WORRELL APRN) Heart Score: C/O Chest Pain: N/A Risk Factors: Risk Factors: DM, Current or recent (<one month) smoker, HTN, HLP, family history of CAD, obesity. Risk Scores: Score 0 - 3: 2.5% MACE over next 6 weeks - Discharge Home Score 4 - 6: 20.3% MACE over next 6 weeks - Admit for Clinical Observation Score 7 - 10: 72.7% MACE over next 6 weeks - Early Invasive Strategies (FILIBERTO WORRELL APRN) Course & Med Decision Making: Course & Med Decision Making Pertinent Labs and Imaging studies reviewed. (See chart for details) [] Patient presents to the emergency department with left upper lower quadrant abdominal pain and loose stools. Work-up in the ER consisted of blood work, urinalysis and CT imaging of abdomen and pelvis. Patient be treated with IV fluids, nausea and pain medication. She will be given a GI cocktail she is complaining of epigastric pain. Blood work was unremarkable, urinalysis unremarkable. Rapid COVID and influenza test negative. CT scan of abdomen shows dilated bowel loops which is likely consistent to enteritis given patient's symptoms of loose stool and chills. Patient does not have any leukocytosis. Likely causes viral. Discussed with supervising physician. Patient be advised to take milk of magnesia and follow with a clear liquid diet and follow-up with her primary care provider with reimaging. Patient's blood pressure has improved while in the emergency department, she is advised to take blood pressure medication at home. I discussed with patient all findings and diagnostic testing as well as the need to follow-up with PCP for further evaluation and treatment or return to the ER if any new or worsening symptoms. Strict return precautions were also discussed at length. Patient voiced understanding and agreement with the plan. Patient is hemodynamically stable at the time of disposition. (FILIBERTO WORRELL APRN) Dragon Disclaimer: Dragon Disclaimer: This electronic medical record was generated, in whole or in part, using a voice recognition dictation system. (FILIBERTO WORRELL APRN) Departure Departure: Impression: Primary Impression: Gastroenteritis Disposition: 01 HOME / SELF CARE / HOMELESS Condition: GOOD Referrals: DYAN VARGAS (PCP) Patient Instructions: Viral Gastroenteritis Additional Instructions: You were seen in the emergency department today for abdominal pain. Your blood work and urinalysis were unremarkable. Your rapid COVID and flu test was negative. CT scan of your abdomen and pelvis shows enteritis, likely viral gastroenteritis. Increase your fluids. You can take milk of magnesia at home. Stick to a clear liquid diet over the next 24 hours which includes soups/broths, Jell-O, Gatorade. Following 24 hours, I would stick to a bland diet, we suggest the brat diet which includes bananas, rice, applesauce and toast. Avoid eating anything spicy, greasy or fatty. If you develop any nausea, you can take the nausea medication as prescribed to you as needed. These follow-up with your primary care provider tomorrow regarding your ER visit. If your pain continues you may need to be reimaged. Your blood pressure was elevated in the emergency department today, when you go home please make sure that you take your blood pressure medication as directed. Return to the emergency department if you develop worsening of your abdominal pain, intractable nausea or vomiting, high fevers refractory to treatment, urinary symptoms, severe back pain, blood in your stools or vomit or any new or worsening concerns. Scripts Ondansetron (ONDANSETRON ODT) 4 Mg Tab.rapdis 1 TAB PO PRN Q6-8HRS for nausea for 7 Days, #28 TAB 0 Refills Prov: FILIBERTO WORRELL APRN 07/29/21 Moustapha Disclaimer This chart was dictated in whole or in part using Voice Recognition software in a busy, high-work load, and often noisy Emergency Department environment. It may contain unintended and wholly unrecognized errors or omissions. (EN JOHNSON MD) Attending Signature Attending Signature I have participated in the care of this patient and I have reviewed and agree with all pertinent clinical information above including history, exam, and r ecommendations. (EN JOHNSON MD) FILIBERTO WORRELL APRN Jul 29, 2021 20:03 EN JOHNSON MD Jul 29, 2021 21:31
[2021-07-29] MEDS ORDERED: IOHEXOL 300 MG/ML 75 ML VIAL. IV ONE (20:30)
[2021-07-29 20:34] LABS: BASO # 0.1 x10^3/uL (0.0-0.2); BASO % 1 % (0-3); EOS # 0.1 x10^3/uL (0.0-0.7); EOS % 1 % (0-3); HEMATOCRIT 39.1 % (36.0-47.0); HEMOGLOBIN 12.8 g/dL (12.0-15.5); LYMPH # 2.4 x10^3/uL (1.0-4.8); LYMPH % 29 % (24-48); MEAN CORPUSCULAR HEMOGLOBIN 32 pg (25-35); MEAN CORPUSCULAR HGB CONC 33 g/dL (31-37); MEAN CORPUSCULAR VOLUME 98 fL (79-100); MONO # 0.6 x10^3/uL (0.0-1.1); MONO % 7 % (0-9); NEUT # 5.2 x10^3uL (1.8-7.7); NEUT % 62 % (31-73); PLATELET COUNT 299 x10^3/uL (140-400); RED CELL DISTRIBUTION WIDTH 14.9 % (11.5-14.5); WHITE BLOOD COUNT 8.3 x10^3/uL (4.0-11.0)
[2021-07-29 20:40] LABS: CALCIUM 8.3 mg/dL (8.5-10.1); CREATININE 0.8 mg/dL (0.6-1.0); GFR 83.7; POTASSIUM 4.2 mmol/L (3.5-5.1)
[2021-07-29] MEDS ORDERED: CONTRAST GIVEN. MC PRN (20:45)
[2021-07-29 20:48] LABS: ALBUMIN/GLOBULIN RATIO 1.1 (1.0-1.7); TOTAL BILIRUBIN 0.3 mg/dL (0.2-1.0); TOTAL PROTEIN 7.8 g/dL (6.4-8.2)
[2021-07-29 20:50] LABS: BACTERIA,URINE 0 /HPF (0-FEW); BILIRUBIN,URINE NEG (NEG); CLARITY,URINE CLEAR; COLOR,URINE YELLOW; GLUCOSE,URINE NEG (NEG); NITRITE,URINE NEG (NEG); RBC,URINE OCC /HPF (0-2); SQUAMOUS EPITHELIAL CELL,UR OCC /LPF; UROBILINOGEN,URINE 0.2 mg/dL (0.2 mg/dL); WBC,URINE OCC /HPF (0-4)
[2021-07-29 20:56] LABS: INFLUENZA A PATIENT NEGATIVE (NEGATIVE); INFLUENZA B PATIENT NEGATIVE (NEGATIVE)
--- NOTE | 2021-07-29 21:46 | RAD ---
Exam: CT of abdomen and pelvis with INDICATION: Left upper quadrant pain TECHNIQUE: Sequential axial images through the abdomen and pelvis obtained following the administrati on of 75 mL of Omni 300 IV contrast. Sagittal and coronal reformatted images were reconstructed from the axial data and reviewed. Exposure: One or more of the following in the visualized dose reduction techniques were utilized for this examination: 1. Automated exposure control 2. Adjustment of the MA and/or KV according to patient size 3. Use of iterative of reconstructive technique Comparisons: 05/04/2020 FINDINGS: Heart size is normal. No pericardial visualized lung bases are clear. No pleural effusion. Numerous hypoattenuating cystic lesions at the liver favored represent simple cysts. Spleen, pancreas, gallbladder and adrenals are unremarkable. Kidneys demonstrate symmetric enhancement. No renal or ureteral calculi. Bladder is partially distended. Uterus is absent. No abnormal adnexal mass. Moderate amount of stool is noted in the colon. Distended small bowel loops noted in the left hemiabd omen. Appendix is nonidentified. No free intra-abdominal air or fluid. No obstruction. Abdominal aorta has normal course and caliber. Abdominal vasculature is patent. No enlarged intra-abdominal lymph nodes are identified. No suspicious osseous lesions or acute fractures. IMPRESSION: Mildly distended loops of small bowel in the left hemiabdomen with mild adjacent fat stranding. Findi ngs could relate to enteritis versus ileus. Developing obstruction is also possible. Continued radiog raphic follow-up is recommended. Electronically signed by: Gregorio Case MD (07/29/2021 9:44 PM) [facility]
[2021-07-29] MEDS ORDERED: ONDA4TAB12 PO (22:07)
[2021-07-29 22:25] VITALS: BP 175/92
[2021-07-29] MEDS ORDERED: MAGNESIUM HYDROXIDE 2,400 MG/30 ML ORAL.SUSP. PO ONE (22:30)
--- NOTE | 2021-07-30 07:31 | EKG ---
[address] [address] Test Date: 2021-07-29 Test Time: 21:17:52 Pat Name: ROCKY CHOWDARY Department: Room: Gender: F Spring Former Machine: FRANKY : 1940 Requested By: FILIBERTO WORRELL Order Number: [id number] Reading MD: Measurements Intervals [place] Rate: 84 P: 34 VA: 164 QRS: -3 QRSD: 80 T: 36 QT: 390 QTc: 464 Interpretive Statements SINUS RHYTHM LEFTWARD AXIS OTHERWISE NORMAL ECG RI6.02 No previous ECG available for comparison
== END 2021-07-29 22:27 | disposition home or self-care (01) ==
LOC: ER 19:30
DX: K52.9 Noninfective gastroenteritis and colitis, unspecified (principal); I10 Essential (primary) hypertension; E03.9 Hypothyroidism, unspecified; Z20.822 Contact with and (suspected) exposure to COVID-19; Z90.710 Acquired absence of both cervix and uterus; Z88.0 Allergy status to penicillin; Z88.1 Allergy status to other antibiotic agents; Z88.8 Allergy status to other drugs, medicaments and biological substances
CPT/HCPCS: 36415; 74177; 80053; 81001; 83690; 84484; 85025; 87428; 93005; 96361; 96374; 96375; 96376; 99285; J2405; J3010; J7030; Q9967

== ENCOUNTER → 2021-09-12 | Outpatient (CLI) | payer MEDICARE, BC ==
[~2021-09-12] MED LIST changes: +ONDA4TAB12 PO
--- NOTE | 2021-09-12 11:29 | RAD ---
BILATERAL DIGITAL SCREENING 2-D AND 3-D MAMMOGRAM INDICATION: Routine screening. COMPARISON: August 27, 2020, August 26, 2019 and August 23, 2018 Interpretation was made using CAD. FINDINGS: Breast Density: There are scattered areas of fibroglandular density. RIGHT BREAST: No suspicious masses, calcifications or areas of architectural distortion are seen. LEFT BREAST: No suspicious masses, calcifications or areas of architectural distortion are seen. IMPRESSION: 1. No imaging evidence of malignancy. ASSESSMENT: BI-RADS 1. Negative. RECOMMENDATION: Routine annual screening mammogram. The facility will notify the patient of the results via mail. Patient information will be entered int o the mammography reminder system with a target recall date for the next mammogram. A reminder letter will be generated by the facility. Electronically signed by: Chen Najera MD (09/12/2021 11:26 AM) [id number]
== END ==
LOC: MAMMO 09:36
PROVIDERS: ATTEND Internal Medicine
DX: Z12.31 Encounter for screening mammogram for malignant neoplasm of breast (principal)
CPT/HCPCS: 77063; 77067